=== PATIENT | female | born 1950 | race Caucasian/White ===

== ENCOUNTER → 2016-12-16 | Outpatient (CLI) | payer OTHER, MEDICARE ==
[~2016-12-16] MED LIST: ASPI1CPM PO; ATOR40TA64 PO; CYCL-375 PO; ESCI20TA22 PO; FLUD0.1T PO; GLIM2TAB3 PO; LAMO100T7 PO; LEVO125T70 PO; LORA-204 PO; MECL-103 PO; METO25TA6 PO; NITR0.4T39 SL; PIOG30TA2 PO; QUET150T3 PO; RABE20TA23 PO; [UNRECOGNIZED DRUG - CODE] PO
[2016-12-16 14:35] LABS: BASOPHILS % (AUTO) 0.3 % (0-2); EOSINOPHILS # (AUTO) 0.1 T/MM3 (0-0.5); EOSINOPHILS % (AUTO) 3.8 % (0-4); HCT - HEMATOCRIT 35.1 % (36-46); HGB - HEMOGLOBIN 11.3 GM/DL (12-16); LYMPHOCYTES # (AUTO) 1.2 T/MM3 (1-4.8); LYMPHOCYTES % (AUTO) 34.3 % (23-45); MEAN CORPUSCULAR HGB CONC(MCHC 32.2 GM/DL (31-37); MEAN CORPUSCULAR VOLUME 96.2 UM3 (80-100); MEAN PLATELET VOLUME 8.3 UM3 (9.4-12.4); MONOCYTES # (AUTO) 0.2 T/MM3 (0-0.8); NEUTROPHILS #(AUTO)-ABSOLUTE 1.9 T/MM3 (1.8-7.7); NEUTROPHILS % (AUTO) 54.6 % (33-66); RED BLOOD COUNT 3.65 M/MM3 (4.00-5.20); WBC - WHITE BLOOD COUNT 3.4 T/MM3 (4.5-11.0)
[2016-12-16 14:43] LABS: URIC ACID 3.4 MG/DL (2.5-7.5)
[2016-12-16 14:52] LABS: LITHIUM 0.2 MMOL/L (0.6-1.2)
[2016-12-16 16:11] LABS: THYROID STIM HORMONE-TSH 11.9 MIU/L (0.47-4.68)
[2016-12-18 00:37] LABS: LDL CHOLESTEROL,CALCULATED 56.8 (66-159); RISK FACTOR 1.8 RATIO (0-4.0); VLDL CHOLESTEROL 13.2 MG/DL (0-28)
== END ==
LOC: LAB 14:12
PROVIDERS: ATTEND Family Medicine
DX: Z51.81 Encounter for therapeutic drug level monitoring (principal); I10 Essential (primary) hypertension; E78.5 Hyperlipidemia, unspecified; E03.9 Hypothyroidism, unspecified
CPT/HCPCS: 80061; 80178; 84443; 84550; 85025

== ENCOUNTER → 2016-12-18 | Outpatient (CLI) | payer OTHER, MEDICARE | LOC: IMA 10:53 | PROVIDERS: ATTEND Family Medicine | DX: M81.0 Age-related osteoporosis without current pathological fracture (principal); Z82.69 Family history of other diseases of the musculoskeletal system and connective tissue; Z87.828 Personal history of other (healed) physical injury and trauma ==

== ENCOUNTER → 2017-01-09 | Outpatient (CLI) | payer OTHER, MEDICARE ==
[~2017-01-09] VITALS: Ht 167.6 cm; Wt 85.9 kg
[~2017-01-09] MED LIST changes: +ACET-62 PO; +DENOSUMAB 60 MG/ML INJECTION SQ ONE; +DICL50TA9 PO; +DICY20TA11 PO; +DOCU-175 PO; +FERR324T4 PO; +HYDR-4072 PO; +LEVO100T12 PO; +LEVO100T4 PO; +LEVO125T11 PO; +LITH150C PO; +SIMV20TA6 PO; +TRAM50TA4 PO
[2017-01-09 14:28] VITALS: Ht 167.6 cm; Wt 85.9 kg
[2017-01-09 14:29] VITALS: BP 126/69; PULSE 59; RESP 20; TEMP 97.2; O2SAT 97
[2017-01-09 14:37] VITALS: PULSE 59; RESP 20
== END ==
LOC: INF.THER 13:59
PROVIDERS: ATTEND Family Medicine
DX: M81.0 Age-related osteoporosis without current pathological fracture (principal)
CPT/HCPCS: 96372

== ENCOUNTER 2017-01-28 20:17 | Inpatient (IN) | payer OTHER, MEDICARE ==
[~2017-01-28] VITALS: Ht 167.6 cm; Wt 90.9 kg
[~2017-01-28 20:17] MED LIST changes: -ACET-62 PO; -DENOSUMAB 60 MG/ML INJECTION SQ ONE; -DICL50TA9 PO; -DICY20TA11 PO; -DOCU-175 PO; -FERR324T4 PO; -HYDR-4072 PO; -LEVO100T12 PO; -LEVO100T4 PO; -LEVO125T70 PO; -MECL-103 PO; -TRAM50TA4 PO
--- OUTSIDE RECORDS SUMMARY | 2017-01-28 20:21 | XMS REPORT | Continuity of Care Document ---
Author Author [facility] Organization [facility] Address Unknown Phone Unavailable Allergies Active Description Code Type Severity Reaction Onset Reported/Identified Relationship to Patient Clinical Status Yes ABILIFY ABILIFY Drug Allergy Unknown N/A 09/13/2006 Yes aripiprazole aripiprazole Drug Allergy Unknown N/A 09/13/2006 Yes GEODON GEODON Drug Allergy Unknown N/A 09/13/2006 Yes No Known Contrast Allergies No Known Contrast Allergies Drug Allergy Unknown N/A 09/13/2006 Yes No Known Food Allergies No Known Food Allergies Drug Allergy Unknown N/A 09/13/2006 Yes NO KNOWN LATEX ALLERGY/SENSITI NO KNOWN LATEX ALLERGY/SENSITI Drug Allergy Unknown N/A 2005 Yes ziprasidone ziprasidone Drug Allergy Unknown N/A 09/13/2006 Yes aripiprazole aripiprazole Drug Allergy Severe PARALYSIS RT. SIDE 02/21/2014 Yes trazodone trazodone Drug Allergy Severe NAUSEA AND VOMITING 02/21/2014 Yes hydrocodone hydrocodone Drug Allergy Moderate rash 02/21/2014 Yes ziprasidone ziprasidone Drug Allergy Mild STOMACH BURNING 02/21/2014 Medications Problems Procedures Code Description Performed By Performed On 89.59 OTH NONOPER CARD AND VASC MEASURE Duke Brown MD 02/21/2014 Results Encounters ACCT No. Visit Date/Time Discharge Status Pt. Type Provider Facility Loc./Unit Complaint [id number] 02/21/2014 06:45:00 2013 09:50:00 DIS Outpatient Duke Brown MD [facility]
--- NOTE | 2017-01-28 20:25 | NUR ---
DR DR ALBERTS AT BEDSIDE.
[2017-01-28] MEDS ORDERED: HYDROMORPHONE 2mg/ml INJECTION IV ONE (20:30)
--- OUTSIDE RECORDS SUMMARY | 2017-01-28 20:33 | XMS REPORT | Continuity of Care Document ---
Author Author [facility] Organization [facility] Address Unknown Phone Unavailable Allergies Active [...] Status Pt. Type Provider Facility Loc./Unit Complaint [id number] 02/21/2014 06:45:00 2013 09:50:00 DIS Outpatient Duke Brown MD [facility]
--- NOTE | 2017-01-28 20:41 | ERPDOC ---
Departure Disposition Decision Date: January 28, 2017 Disposition Decision Time: 22:33 Disposition: 02 TO [facility] Impression Impression Impression: Primary Impression: Closed fracture dislocation of left ankle Encounter type: initial encounter Qualified Codes: S82.892A - Other fracture of left lower leg, initial encounter for closed fracture Severity: Moderate Condition: Improved Seen By: Physician only Referrals: KORI PRADO II, MD (Family) Problems/Meds/Labs Reviewed?: Yes Medications reviewed and manag: Yes Additional Instructions: Use Tylenol liquid, 90 mg up to 4 times daily as needed for fever or fussiness Encourage frequent small amounts of formula and or Pedialyte as needed to maintain hydration, getting at least 3 urinations daily Follow up care ordered?: Yes Mental Status: Alert HPI General Chief Complaint: Lower Extremity Injury Stated Complaint: FALL Time Seen by Provider: 20:24 Source: patient Exam Limitations: no limitations HPI Foot/Ankle Initial Comments Patient was brought in by EMS for left ankle fracture. She was standing in her kitchen when she turned at the kitchen sink, stumbled and fell on a twisted ankle. Patient heard a pop, and had obvious deformity with sure/dislocation of left ankle. Given 100 g fentanyl in route to good relief. Occurred At: home Onset: Rapid Duration: 1/2 hour Severity: moderate Location: left: ankle Method of Injury: fell, twisted Associated Symptoms: pain with extension, pain with flexion, pain with standing , DENIES: bruising, pallor, red streaks, redness, swelling, weakness Allergies: Coded Allergies: aripiprazole (Verified Allergy, Unknown, RASH, 01/29/17) trazodone (Verified Allergy, Unknown, RASH, 01/29/17) cephalexin (Verified Adverse Reaction, Unknown, NAUSEA, 01/29/17) ziprasidone (Verified Adverse Reaction, Unknown, N/V, 01/29/17) Past History Patient Surgical History C SPINE fusion L TKA ORIF right ankle Back Fusion Hyst Carotid Endar Past Medical History Metabolic: diabetes, hypercholesterolemia, hypertension, hypothyroidism Cardiac: CAD, SD, angina Respiratory: pneumonia GI: GERD, IBS, ulcers Neurological: CVA, TIA, seizures Musculoskeletal: osteoarthritis Hematologic: anemia Psychological: OD, anxiety, depression, psychosis, schizophrenia, suicide attempt Surgical History General: appendix, back, colonoscopy, gallbladder, neck Cardiac: cardiac cath, carotid endarterectomy Reproductive/: hysterectomy Joint: foot, knee Vaccines Hx Influenza Vaccination: Yes (JUN 2016) Hx Pneumococcal Vaccination: Yes (JUN 2016) Hx Tetanus Diptheria: Yes Social History Does patient use chewing tobac: No Second Hand Exposure: No Substance Use Type: does not use Alcohol Intake: none Sexuality: male partner Review of Systems Constitutional Constitutional: DENIES: appetite decrease, appetite increase, chills, dizziness , fever, weakness ENMT Ears: DENIES: pain Hearing: DENIES: hearing loss, tinnitus Balance: DENIES: vertigo Mouth/Throat: DENIES: change in swallowing, change in voice, hoarsness, painful swallowing, sore throat Cardiovascular Cardiac: DENIES: chest pain, dyspnea on exertion Rhythm/Rate: DENIES: irregular beat, palpitations, tachycardia Vascular: DENIES: pedal edema Pulmonary Respiratory: DENIES: cough, dyspnea, pleuritic chest pain GI Upper Abdomen: DENIES: dysphagia, heartburn/indigestion, nausea, pain, vomiting Lower Abdomen: DENIES: blood in stool, constipation, diarrhea, pain General: DENIES: burning, dysuria, frequency, pain, urgency Musculoskeletal General: joint pain, joint swelling, pain, tenderness, DENIES: cramps, weakness Integumentary Skin: DENIES: rash, sores Neurological General: DENIES: headache, numbness, tingling, vertigo, weakness Exam General General Nourishment: well nourished, well developed, appears stated age General Body Habitus: well groomed Vital Signs: RN Vital Signs have been reviewed: Yes Height (Feet): 5 Height (Inches): 6.00 Fastrak Foot/Ankle Comments Patient has obvious fracture dislocation with deformity and lateral rotation, posterior deformity of the left ankle. Patient has good pulses, good capillary refill, and physical exam patient had reduction of fracture dislocation easily at the bedside. The ankle is clearly unstable, and required splinting at the bedside to maintain proper positioning Eyes (brief) Eyes Brief: found: EOMI, PERRL ENMT (brief) ENMT Brief: FOUND: mucosa moist, normal dentition, NOT FOUND: nasal erythema, nasal exudate, nasal swelling, pharnyx erythema, tonsillar deviation Neck (brief) Neck Brief: FOUND: trachea midline, NOT FOUND: JVD, adenopathy, spasm, tenderness Respiratory (brief) Respiratory Brief: FOUND: clear all deng, equal bilaterally, symmetrical, NOT FOUND: rales, tenderness, wheezes Cardiovascular (brief) Cardiac Brief: FOUND: regular rate, regular rhythm, NOT FOUND: pedal edema Capillary Refill: <2 sec Abdomen (brief) Abdominal Brief: FOUND: bowel normo active x4, soft, NOT FOUND: tender Lymphatic (brief) Lymphatic Brief: NOT FOUND: adenopathy, lymphedema Musculoskeletal (brief) Musculoskeletal Brief: FOUND: deformity, loss of motion, NOT FOUND: spasm, tenderness Integumentary (brief) Integumentary Brief: FOUND: dry, pink, warm Neurologic (brief) Neurological Brief: FOUND: CN w/o gross def to obs, motor-no gross deficits, sensory-no gross deficits, NOT FOUND: ataxia Neurologic RN Documented GCS Eye Opening: Verbal: Motor: Total: Psychiatric (brief) Psychiatric Brief: FOUND: alert, attentive, normal affect, oriented Progress Results/Orders Orders Procedure Category Date Status Time Bmp - Basic Metabolic LAB 01/31/17 Complete Panel 09:38 Hydrocodone/Acetaminophen PHA 01/31/17 In Process (Pimento 7.5/325 12:30 Enoxaparin (Lovenox) PHA 02/01/17 In Process 21:00 Lab Results Laboratory Tests Test 01/31/17 05:52 01/31/17 09:56 01/31/17 10:29 01/31/17 15:33 Glucometer 111mg/dL 157mg/dL 55mg/dL Turbidity < 20 Sodium Level 143MEQ/L Potassium Level 4.0MEQ/L Chloride Level 105MEQ/L Carbon Dioxide Level 29MEQ/L Anion Gap 9MEQ/L Blood Urea Nitrogen 11.0MG/DL Creatinine 0.7MG/DL Glomerular Filtration Rate Calc 83 BUN/Creatinine Ratio 16RATIO Glucose Level 171MG/DL Calculated Osmolality 278MOSM/KG Calcium Level 9.5MG/DL Icterus Index < 2 Chemistry Specimen Hemolysis < 15 Test 01/31/17 15:54 01/31/17 20:47 Glucometer 122mg/dL 102mg/dL Medications Current ED Medications Hydromorphone HCl (Dilaudid) 0.5 mg O ONCE IV Last administered on 01/28/17t 20:37; Start 01/28/17 at 20:30; Stop 01/28/17 at 20:31; Status DC Ondansetron HCl (Zofran) 4 mg O ONCE IV Last administered on 01/28/17 20:50; Start 01/28/17 at 20:45; Stop 01/28/17 at 20:46; Status DC Diazepam 5 mg 5 mg O ONCE IV Last administered on 01/28/17 21:43; Start 01/28 at 21:30; Stop 01/28/17 at 21:31; Status DC Sodium Chloride (Normal Saline IV) 1,000 ml @ 0 mls/hr Q0M ONCE IV ; Start 07/07 at 21:30; Stop 01/28/17 at 21:31; Status DC Fentanyl 100 mcg 100 mcg O ONCE IV Last administered on 01/28/17 22:12; Start 01/28/17 at 22:15; Stop 01/28/17 at 22:16; Status DC Lactated Ringer's (Lactated Ringers) 1,000 ml @ 50 mls/hr Q20H IV Last administered on 01/31/17 15:30; Start 01/28/17 at 22:27 Progress Progress Patient had fracture/dislocation stabilized the posterior short leg splint prior to x-rays Given Dilaudid 0.5 mg IV, and Zofran 4 mg IV for pain and nausea caused during manipulation of the ankle. X-rays reveal severe fracture/dislocation of left ankle involving the lateral malleolus, distal fibula. Even after initial repositioning, patient is still in poor alignment. 2114 - Case is discussed with Dr. Ac, he will attend to the patient in the ER are physician providing any needed sedation, to reduce fracture and dislocation , splinted appropriately, will plan to admit from there. Patient given additional 100 g fentanyl for pain control during second reduction and splinting by Dr. Ac Admitted RUSSELL ALBERTS MD January 28, 2017 20:41 Glomerular Filtration Rate Calc 62 BUN/Creatinine Ratio 24RATIO Glucose Level 117MG/DL Calculated Osmolality 279MOSM/KG Calcium Level 9.1MG/DL Icterus Index < 2 Chemistry Specimen Hemolysis < 15 Medications Current ED Medications Hydromorphone HCl (Dilaudid) 0.5 mg O ONCE IV Last administered on 01/28/17 20:37; Start 01/28/17 at 20:30; Stop 01/28/17 at 20:31; Status DC Ondansetron HCl (Zofran) 4 mg O ONCE IV Last administered on 01/28/17 20:50; Start 01/28/17 at 20:45; Stop 01/28/17 at 20:46; Status DC Diazepam 5 mg 5 mg O ONCE IV Last administered on 01/28/17 21:43; Start 01/28 at 21:30; Stop 01/28/17 at 21:31; Status DC Sodium Chloride (Normal Saline IV) 1,000 ml @ 0 mls/hr Q0M ONCE IV ; Start 07/07 at 21:30; Stop 01/28/17 at 21:31; Status DC Fentanyl (Fentanyl) 100 mcg O ONCE IV Last administered on 01/28/17 22:12; Start 01/28/17 at 22:15; Stop 01/28/17 at 22:16; Status DC Progress Progress Patient had fracture/dislocation stabilized the posterior short leg splint prior to x-rays Given Dilaudid 0.5 mg IV, and Zofran 4 mg IV for pain and nausea caused during manipulation of the ankle. X-rays reveal severe fracture/dislocation of left ankle involving the lateral malleolus, distal fibula. Even after initial repositioning, patient is still in poor alignment. 2114 - Case is discussed with Dr. Ac, he will attend to the patient in the ER are physician providing any needed sedation, to reduce fracture and dislocation , splinted appropriately, will plan to admit from there. Patient given additional 100 g fentanyl for pain control during second reduction and splinting by Dr. Ac Admitted RUSSELL ALBERTS MD January 28, 2017 20:41
[2017-01-28] MEDS ORDERED: ONDANSETRON 4mg/2ml INJECTION IV ONE (20:45)
[2017-01-28] MEDS ORDERED: HYDR-4072 PO (20:48)
[2017-01-28] MEDS ORDERED: DICL50TA9 PO (20:51)
[2017-01-28] MEDS ORDERED: TRAM50TA4 PO (20:51)
[2017-01-28 20:53] LABS: BASOPHILS % (AUTO) 0.3 % (0-2); EOSINOPHILS # (AUTO) 0.2 T/MM3 (0-0.5); EOSINOPHILS % (AUTO) 1.9 % (0-4); HCT - HEMATOCRIT 32.6 % (36-46); HGB - HEMOGLOBIN 10.5 GM/DL (12-16); IMMATURE GRANULOCYTE # (AUTO) 0.03 T/MM3 (0.00-0.03); IMMATURE GRANULOCYTE % (AUTO) 0.3 % (0.0-0.5); LYMPHOCYTES # (AUTO) 2.3 T/MM3 (1-4.8); LYMPHOCYTES % (AUTO) 22.9 % (23-45); MEAN CORPUSCULAR HGB 30.1 UUG (26-34); MEAN CORPUSCULAR HGB CONC(MCHC 32.2 GM/DL (31-37); MEAN CORPUSCULAR VOLUME 93.4 UM3 (80-100); MEAN PLATELET VOLUME 8.7 UM3 (9.4-12.4); MONOCYTES # (AUTO) 0.7 T/MM3 (0-0.8); MONOCYTES % (AUTO) 6.8 % (0-9.0); NEUTROPHILS #(AUTO)-ABSOLUTE 6.7 T/MM3 (1.8-7.7); NEUTROPHILS % (AUTO) 67.8 % (33-66); RED BLOOD COUNT 3.49 M/MM3 (4.00-5.20)
[2017-01-28] MEDS ORDERED: DOCU-175 PO (20:56)
--- NOTE | 2017-01-28 20:56 | NUR ---
XRY PORTABLE XRY AT BEDSIDE.
[2017-01-28] MEDS ORDERED: FERR324T4 PO (20:57)
[2017-01-28] MEDS ORDERED: ACET-62 PO (20:58)
[2017-01-28] MEDS ORDERED: DICY20TA11 PO (20:59)
[2017-01-28] MEDS ORDERED: LEVO100T12 PO (21:03)
[2017-01-28 21:05] LABS: ANION GAP 12 MEQ/L (5-15); BUN/CREATININE RATIO 24 RATIO (6-26); CALCIUM 9.1 MG/DL (8.4-10.2); CHLORIDE 111 MEQ/L (98-107); CO2 - CARBON DIOXIDE 20 MEQ/L (22-30); CREATININE 0.9 MG/DL (0.7-1.2); GLOMERULAR FILTRATION RATE 62; GLUCOSE 117 MG/DL (65-110); POTASSIUM 4.7 MEQ/L (3.6-5); SODIUM 143 MEQ/L (134-144)
[2017-01-28] MEDS ORDERED: NORMAL SALINE 1,000 ML IV ONE (21:30)
--- NOTE | 2017-01-28 21:42 | NUR ---
MED PT GIVEN INSTRUCTION REGARDING VALIUM. UNDERSTANDING VERBALIZED.
--- NOTE | 2017-01-28 22:04 | NUR ---
DR DR BARRIOS AT BEDSIDE.
[2017-01-28] MEDS ORDERED: FENTANYL 100mcg/2ml INJECTION IV ONE (22:15)
--- NOTE | 2017-01-28 22:26 | NUR ---
XRY PORTABLE XRY AT BEDSIDE.
[2017-01-28] MEDS ORDERED: METOCLOPRAMIDE 10mg/2ml INJECTION IV PRN (22:30)
[2017-01-28] MEDS ORDERED: ONDANSETRON 4mg/2ml INJECTION IV PRN (22:30)
--- NOTE | 2017-01-28 22:41 | NUR ---
REPORT GIVEN TO [facility].
--- NOTE | 2017-01-28 22:45 | NUR ---
VOID PT VOIDED LG AMOUNT OF URINE. BEDPAD DID NOT CONTAIN VOLUME. PT ASSISTED WITH CLEANSE AND ASSISTED WITH PIVOT TRANSFER TO .
--- NOTE | 2017-01-28 22:47 | HPPDOC ---
Ortho HPI HPI Elements Location: FOUND ankle (left) Injury: Yes Pain: FOUND stabbing Onset: Sudden Severity: FOUND severe Duration: FOUND 1-6 hours Previous Surgery: No Previous Injury: No Aggrevated by: FOUND all activity Associated Symptoms: FOUND numbness X-ray Findings: FOUND other (bimalleolar fracture dislocation) Recommendation: FOUND other (closed reduction with overnight observation and possible ORIF tomorrow) HPI Fell at home in kitchen when twisting Past Medical History Adult Problem List Updates NIDDM Surgical History Patient's Surgical History: C SPINE fusion L TKA ORIF right ankle Back Fusion Hyst Carotid Endar Current Medications Acetaminophen (Acetaminophen) 500 Mg Tablet, 500 MG PO QID PRN for PAIN, ( Reported) Last Taken: Unknown Dose on Unknown Date & Time Aspirin/Dipyridamole ( Aggrenox 25 mg-200 mg Capsule) 1 Cap Capsule, 1 CAP PO BID, (Reported) Last Taken: Unknown Dose on 01/28/17 1800 Atorvastatin Calcium (Atorvastatin Calcium) 40 Mg Tablet, 40 MG PO HS, (Reported) Last Taken: Unknown Dose on 01/27/171999 Cyclobenzaprine HCl ( Cyclobenzaprine HCl) 10 Mg Tablet, 10 MG PO HS, (Reported) Last Taken: Unknown Dose on 01/27/171999 Dicyclomine HCl (Dicyclomine HCl) 20 Mg Tablet, 20 MG PO QID, (Reported) Last Taken: Unknown Dose on 01/28/17 1800 Docusate Sodium (Docusate Sodium) 100 Mg Capsule, 100 MG PO DAILY PRN for CONSTIPATION, (Reported) Last Taken: Unknown Dose on Unknown Date & Time Escitalopram Oxalate ( Lexapro) 20 Mg Tablet, 20 MG PO DAILY, (Reported) Last Taken: Unknown Dose on 01/28/17 0800 Ferrous Sulfate (Ferrous Sulfate) 324 Mg Tablet.dr, 324 MG PO DAILY, (Reported) Last Taken: Unknown Dose on Unknown Date & Time Fludrocortisone Acetate ( Fludrocortisone Acetate) 0.1 Mg Tablet, 0.1 MG PO DAILY, (Reported) Last Taken: Unknown Dose on 01/28/17 0800 Hydrocodone/Acetaminophen ( Hydrocodon-Acetaminoph 7.5-325) 7.5-325 Tablet, 1-2 TAB PO Q4-6H PRN for PAIN, ( Reported) Last Taken: Unknown Dose on Unknown Date & Time Lamotrigine (Lamictal) 100 Mg Tablet, 100 MG PO BID, (Reported) Last Taken: Unknown Dose on 01/28/17 1800 Levothyroxine Sodium ( Levothyroxine Sodium) 100 Mcg Tablet, 100 MCG PO DAILY, (Reported) Last Taken: Unknown Dose on 01/28/17 0800 Prince Carbonate (Prince Carbonate) 150 Mg Capsule, 150 MG PO WS, (Reported) Last Taken: Unknown Dose on 01/28/17 1800 Lorazepam (Ativan) 1 Mg Tablet, 1 MG PO TID PRN for ANXIETY, (Reported) Last Taken: Unknown Dose on Unknown Date & Time Metformin Hcl (Glucophage) 850 Mg Tablet, 850 MG PO BID, (Reported) Last Taken: Unknown Dose on 01/28/17 1800 Metoprolol Tartrate (Metoprolol Tartrate) 25 Mg Tablet, 0.5 TAB PO BIDWM, (Reported) Last Taken: Unknown Dose on 01/28/17 1800 Quetiapine Fumarate (Seroquel Xr) 150 Mg Tablet, 150 MG PO HS, (Reported) Last Taken: Unknown Dose on 01/27/17 2000 Rabeprazole Sodium (Aciphex) 20 Mg Tablet.dr, 20 MG PO DAILY, (Reported) Last Taken: Unknown Dose on 01/28/17 0800 Allergies Allergies: Coded Allergies: aripiprazole (Verified Allergy, Unknown, RASH, 01/28/17) trazodone (Verified Allergy, Unknown, RASH, 01/28/17) cephalexin (Verified Adverse Reaction, Unknown, NAUSEA, 01/28/17) ziprasidone (Verified Adverse Reaction, Unknown, N/V, 01/28/17) Family History Family History: Dementia Parkinson's dz Alzheimer's dz Vaccines 2016 Jun NO OPEN AREA Social History Does patient use chewing tobac: No Second Hand Exposure: No Substance Use Type: does not use Alcohol Intake: none Sexuality: male partner Review of Systems Constitutional: DENIES: chills, fever Cardiovascular DENIES: chest pain Pulmonary Respiratory: DENIES: dyspnea GI Upper Abdomen: DENIES: nausea, vomiting Lower Abdomen: DENIES: constipation, diarrhea General: DENIES: dysuria Physical Exam General General: well nourished, well developed Cardiovascular Cardiac Comments good DP pulse and CR Integumentary FOUND dry, FOUND pink, FOUND warm Neurologic Comments decreased sensation to all toes and dorsum of foot Psychiatric FOUND alert Laboratory Laboratory Tests Test 01/28/17 20:47 White Blood Count 10.0T/MM3 Red Blood Count 3.49M/MM3 Hemoglobin 10.5GM/DL Hematocrit 32.6% Mean Corpuscular Volume 93.4UM3 Mean Corpuscular Hemoglobin 30.1UUG Mean Corpuscular Hemoglobin Concent 32.2GM/DL RDW Standard Deviation 45.8FL Platelet Count 259T/MM3 Mean Platelet Volume 8.7UM3 Immature Granulocyte % (Auto) 0.3% Neutrophils (%) (Auto) 67.8% Lymphocytes (%) (Auto) 22.9% Monocytes (%) (Auto) 6.8% Eosinophils (%) (Auto) 1.9% Basophils (%) (Auto) 0.3% Absolute Immature Granulocyte (auto 0.03T/MM3 Absolute Neutrophils (auto) 6.7T/MM3 Absolute Lymphocytes (auto) 2.3T/MM3 Absolute Monocytes (auto) 0.7T/MM3 Absolute Eosinophils (auto) 0.2T/MM3 Absolute Basophils (auto) 0.0T/MM3 Turbidity < 20 Sodium Level 143MEQ/L Potassium Level 4.7MEQ/L Chloride Level 111MEQ/L Carbon Dioxide Level 20MEQ/L Anion Gap 12MEQ/L Blood Urea Nitrogen 22.0MG/DL Creatinine 0.9MG/DL Glomerular Filtration Rate Calc 62 BUN/Creatinine Ratio 24RATIO Glucose Level 117MG/DL Calculated Osmolality 279MOSM/KG Calcium Level 9.1MG/DL Icterus Index < 2 Chemistry Specimen Hemolysis < 15 Assessment & Plan Problems: (1) Closed fracture dislocation of left ankle Status: Acute Qualifiers: Encounter type: initial encounter Qualified Codes: S82.892A - Other fracture of left lower leg, initial encounter for closed fracture Assessment & Plan: Closed reduction in ER. Admit for observation and elevation and pain control and possible surgery tomorrow. ILAN BARRIOS MD January 28, 2017 22:47
--- OUTSIDE RECORDS SUMMARY | 2017-01-28 22:59 | XMS REPORT | Continuity of Care Document ---
Author Author [facility] Organization [facility] Address Unknown Phone Unavailable Allergies Active Description [...] Status Pt. Type Provider Facility Loc./Unit Complaint [id number] 02/21/2014 06:45:00 2013 09:50:00 DIS Outpatient Duke Brown MD [facility]
[2017-01-28 23:00] VITALS: BP 154/71; PULSE 65; RESP 16; TEMP 96.6; O2SAT 95
--- NOTE | 2017-01-28 23:00 | NUR ---
ADMIT PT TRANSFERRED TO SURGICAL UNIT VIA WC BY ARNOLDO GILLETTE.
--- NOTE | 2017-01-28 23:00 | NUR ---
ADMIT 66 YEAR OLD FEMALE PATIENT ADMITTED TO ROOM 133 VIA WC FROM ED. ADMITTED TO SERVICES OF DR. BARRIOS. AWAKE AND ALERT. ORIENTED TO PERSON, PLACE, AND TIME. DENIES PAIN EXCEPT WITH MOVEMENT. SPLINT IN PLACE TO LEFT ANKLE-FOOT ELEVATED ON PILLOWS. ORIENTED TO ROOM, CALL LIGHT, PLAN OF CARE, ETC. DENIES NEEDS. WILL MONITOR.
[2017-01-28 23:04] VITALS: Ht 167.6 cm; Wt 90.9 kg
[2017-01-28] MEDS: LR 1,000 ML IV SCH (23:33)
[2017-01-29] MEDS: HYDROMORPHONE 2mg/ml INJECTION IV PRN ×4 (01:27→19:34)
[2017-01-29 05:06] LABS: BASOPHILS % (AUTO) 0.2 % (0-2); EOSINOPHILS # (AUTO) 0.1 T/MM3 (0-0.5); HCT - HEMATOCRIT 32.9 % (36-46); HGB - HEMOGLOBIN 10.6 GM/DL (12-16); IMMATURE GRANULOCYTE # (AUTO) 0.02 T/MM3 (0.00-0.03); IMMATURE GRANULOCYTE % (AUTO) 0.2 % (0.0-0.5); LYMPHOCYTES # (AUTO) 1.9 T/MM3 (1-4.8); LYMPHOCYTES % (AUTO) 21.5 % (23-45); MEAN CORPUSCULAR HGB 29.9 UUG (26-34); MEAN CORPUSCULAR HGB CONC(MCHC 32.2 GM/DL (31-37); MEAN CORPUSCULAR VOLUME 92.7 UM3 (80-100); MEAN PLATELET VOLUME 8.9 UM3 (9.4-12.4); MONOCYTES # (AUTO) 0.7 T/MM3 (0-0.8); MONOCYTES % (AUTO) 8.2 % (0-9.0); NEUTROPHILS % (AUTO) 68.9 % (33-66); RED BLOOD COUNT 3.55 M/MM3 (4.00-5.20); WBC - WHITE BLOOD COUNT 8.7 T/MM3 (4.5-11.0)
[2017-01-29 05:24] LABS: ANION GAP 9 MEQ/L (5-15); BUN/CREATININE RATIO 21 RATIO (6-26); CALCIUM 9.3 MG/DL (8.4-10.2); CHLORIDE 111 MEQ/L (98-107); CO2 - CARBON DIOXIDE 24 MEQ/L (22-30); CREATININE 0.8 MG/DL (0.7-1.2); GLOMERULAR FILTRATION RATE 71; GLUCOSE 91 MG/DL (65-110); POTASSIUM 5.3 MEQ/L (3.6-5); SODIUM 144 MEQ/L (134-144)
--- NOTE | 2017-01-29 06:08 | NUR ---
SUMMARY RESTED THROUGH PART OF THE NIGHT WITH EYES CLOSED. MEDICATED WITH DILAUDID FOR LEFT ANKLE PAIN. REPORTS INCREASED THROBBING AND FEELING OF TIGHTNESS TO LEFT ANKLE THIS AM. CONTINUES TO HAVE GOOD COLOR, MOTION, AND SENSATION TO LEFT TOES. LEFT PEDAL PULSE REMAINS PALPABLE. LEFT ANKLE REMAINS ELEVATED ON PILLOWS. WILL CONTINUE TO MONITOR.
[2017-01-29] MEDS ORDERED: DOCUSATE SODIUM 100 MG CAPSULE PO PRN (07:15)
[2017-01-29] MEDS ORDERED: LORAZEPAM 1 MG TABLET PO PRN (07:15)
[2017-01-29] MEDS ORDERED: ACETAMINOPHEN 500 MG TABLET PO PRN (07:15)
[2017-01-29 07:27] VITALS: BP 131/76; PULSE 66; RESP 12; TEMP 96.1; O2SAT 95
--- NOTE | 2017-01-29 07:39 | NUR ---
DR VISIT Dr Ac and Preston visit, assess left lower extremity, and discuss plan with patient. Plan is to wait on surgery. Platelet function test cancelled per order. Discussed that patient is diabetic. Blood sugar order received. Case management to follow regarding discharge planning for as early as today. Patient states that she lives at home and that help is not available during the day as her works. She will be unable to bear weight on the affected leg per Dr Ac's instructions to her.
[2017-01-29 07:55] VITALS: TEMP 97.6
[2017-01-29 08:08] VITALS: PULSE 75; RESP 12
--- NOTE | 2017-01-29 08:16 | PDORTHOPN ---
Subjective Date DATE: 01/29/17 TIME: 08:07 Jacqueline Topete is seen this AM for f/u on left ankle fx-dislocation. Pain is well controlled. No numbness or tingling in foot or toes. No other concerns. Objective Vital Signs Vital signs Vital Signs 01/28/17 01/28/17 01/28/17 01/28/17 20:17 20:37 21:47 22:51 Temp 97.7 Pulse 65 66 81 Resp 18 16 16 18 B/P 133/77 151/70 151/61 Pulse Ox 96 95 95 O2 Delivery Room Air Room Air Room Air 01/28/17 01/28/17 01/28/17 01/29/17 23:00 23:00 23:00 01:27 Temp 96.6 Pulse 65 81 Resp 16 16 18 16 B/P 154/71 151/61 Pulse Ox 95 95 O2 Delivery Room Air Room Air 01/29/17 01/29/17 01/29/17 01/29/17 05:20 07:27 07:41 07:55 Temp 96.1 97.6 Pulse 66 Resp 16 12 12 B/P 131/76 Pulse Ox 95 O2 Delivery Room Air Height (Feet): 5 Height (Inches): 6.00 Weight (Kilograms): 98.200 General General Appearance: No Acute Distress Respiratory (Brief) Respiratory Brief: FOUND: non-labored Musculoskeletal (Brief) Comments Swelling of the left foot / ankle noted with bruising around the ankle. Integumentary (Brief) Integumentary Brief: FOUND dry, FOUND pink, FOUND warm Neurologic (Brief) Neurological Brief: FOUND: neuro intact Psychiatric (Brief) Psychiatric Brief: FOUND: alert, no acute distress Laboratory Laboratory Laboratory Tests 01/28/17 20:47 01/29/17 04:56 Laboratory Tests 01/28/17 20:47 01/29/17 04:56 Assessment & Plan Problems: (1) Closed fracture dislocation of left ankle Status: Acute Qualifiers: Encounter type: initial encounter Qualified Codes: S82.892A - Other fracture of left lower leg, initial encounter for closed fracture Assessment & Plan: 01/28/17 Closed reduction left ankle fx-dislocation in ER by Dr Ac 01/28. Admitted for observation, elevation, pain control and possible surgery 01/29 if swelling allows. 01/29/17 Swelling is too much for surgery today. Will discuss holding Aggrenox with Dr Brown. Schedule for surgery 02/03 and check her in the office 02/02 to confirm swelling is down. Arrange placement in facility due to her need for non-wt bearing and strict elevation. Pt will not be able to manage at home. Case Management consulted to assist. Hospital Course Summary Disclaimer The visit summary below is not to be considered part of the above Progress Note. REYNA CHUNG January 29, 2017 08:10
[2017-01-29] MEDS: --POM--METOPROLOL TARTRATE 25mg TABLET PO SCH ×2 (08:20→17:36)
[2017-01-29] MEDS: METFORMIN 850 MG PO SCH ×2 (08:20→17:36)
[2017-01-29] MEDS: RABEPRAZOLE 20 MG PO SCH (08:21)
[2017-01-29] MEDS: DICYCLOMINE 20 MG PO SCH ×4 (08:22→22:23)
[2017-01-29] MEDS: FLUDROCORTISONE 0.1 MG PO SCH (08:22)
[2017-01-29] MEDS: LEVOTHYROXINE 100 MCG PO SCH (08:23)
[2017-01-29] MEDS: ESCITALOPRAM 20 MG PO SCH (08:23)
[2017-01-29] MEDS: LAMOTRIGINE 100 MG PO SCH ×2 (08:24→22:23)
[2017-01-29] MEDS: FERROUS SULFATE 324 MG TABLET PO SCH (08:35)
--- NOTE | 2017-01-29 08:48 | DI ---
EXAM: ANKLE LEFT 3 VIEW 2107 hours COMPARISON: 01/11/2016. 03/31/2012. HISTORY: ITS.REASON: left ankle fracture dislocation . FINDINGS: There is a trimalleolar fracture dislocation of the ankle. There is an obliquely oriented fracture through the distal metadiaphysis of the fibula with the distal fracture fragment laterally displaced a shaft width. There is a transverse fracture through the base of the medial malleolus which may be posteriorly displaced a shaft width. There is an obliquely oriented fracture through the posterior malleolus which is relatively nondisplaced. There is posterior dislocation of the talus relative to the distal tibia, a shaft width. There is widening of the lateral ankle mortise with widening of the interosseous space of the distal tibia and fibula. The fracture through the medial malleolus may extend to the distal metaphysis of the medial tibia. IMPRESSION: Trimalleolar fracture dislocation of the ankle as described above. LOCATION OF DICTATION: [facility] [place] .
--- NOTE | 2017-01-29 08:51 | DI ---
EXAM: ANKLE LEFT 2 VIEW 2234 hours COMPARISON: 01/28/2017 at 2107 hours. 01/11/2016. 03/31/2012. HISTORY: ITS.REASON: post reduction, ankle fracture . FINDINGS: There is interval reduction of the trimalleolar fracture dislocation of the left ankle. The previously seen obliquely oriented fracture through the distal metadiaphysis of the fibula appears to now be well aligned and only minimally posteriorly displaced a cortex width. The fracture through the base of the medial malleolus is now relatively nondisplaced. The fracture through the posterior malleolus is only minimally displaced a cortex width posteriorly. There is interval reduction of the previously seen posterior ankle dislocation and the talus now appears to be well-seated to the tibial plafond. IMPRESSION: Interval reduction of the trimalleolar fracture dislocation of the ankle which now appears to be in good position and alignment. LOCATION OF DICTATION: [facility] [place] .
--- NOTE | 2017-01-29 09:21 | NUR ---
MAX CM IN TO VISIT PATIENT, SHE IS A&O. PATIENT IS TO DISCHARGE HOME WITH SURGERY PENDING FOR ANKLE FRACTURE. PATIENT LIVES AT HOME WITH WHO WORKS FT DAY SHIFT WITH NO OTHER FAMILY HELP. INITIALLY SHE STATES THAT HAS TO WORK BUT THERE ISN'T A PLAN FOR WHEN HE IS GONE. AFTER REVIEWING OPTIONS OF PRIVATE PAY FACILITY, HH BUT NEED HELP AT ALL TIMES SHE STATES THAT WILL JUST HAVE TO TAKE VACATION TIME. STATES THAT HE IS PHYSICALLY ABLE TO HELP HER GET TO THE BATHROOM, ETC. SHE HAS A WC AND WC RAMP, WELL A WALKER AND WHEELED WALKER WHICH SHE WILL NOT USE THE WHEELED WALKER AT THIS TIME. CM CONTACT INFORMATION GIVEN, SHE WILL CALL ME AFTER VISITING WITH HER . Addendum: 01/29/17 at 0925 by NORBERTO ADAM RN Amended: Links added.
--- NOTE | 2017-01-29 09:54 | NUR ---
MAX SANTANA HAD VOICE MESSAGE FROM RANULFO ROE THAT PATIENT WILL NEED PLACEMENT UNTIL SURGERY DUE TO BEING NON WEIGHT BEARING. I REVISITED PATIENT, SHE STILL WOULD LIKE TO GO HOME WITH 'S HELP. I DID CALL AND SPEAK TO TO SEE IF HE IS IN AGREEMENT THAT HE WILL BE ABLE TO MANAGE AND HE IS. WE DID TALK ABOUT COST OF PRIVATE PAY FACILITY PLACEMENT AND HE FEELS THAT THEY CAN NOT AFFORD THIS. WHEN HIS VACATION LEAVE IS APPROVED I WILL BE NOTIFIED. IN ADDITION TO WC/WC RAMP/WALKER, PATIENT DOES ALSO HAVE A COMMODE AND RECLINER WHERE SHE COULD SLEEP. IF PLACEMENT IS NEEDED PATIENT GAVE ME PERMISSION TO CALL ALL TRIPP FACILITIES.
--- NOTE | 2017-01-29 10:23 | NUR ---
PAIN PRN NORCO GIVEN FOR PAIN IN THE LEFT ANKLE.
--- NOTE | 2017-01-29 10:25 | NUR ---
CM PATIENT CALLED AND HER 'S LEAVE WAS APPROVED AND THE PLAN IS TO DISCHARGE HOME WITH HIS 24 HOUR CARE.
--- NOTE | 2017-01-29 10:59 | NUR ---
MAX CM IN TO VISIT PATIENT, EXPLAINED PT/OT WILL EVAL AND EDUCATE ON TRANSFERS. PATIENT IS AGREEABLE TO [facility], WILL REFER TO JAMARI OLIVAS. I CALLED SPEEDY AT [facility] AND LEFT VOICE MESSAGE OF REFERRAL.
--- NOTE | 2017-01-29 12:59 | PROCEDUREF ---
DATE OF PROCEDURE 01/28/2017 PREPROCEDURE DIAGNOSIS Left ankle fracture-dislocation. POSTOPERATIVE DIAGNOSIS Left ankle fracture-dislocation. PROCEDURE PERFORM ED Closed reduction of left ankle. SURGEON Cash Ac MD DESCRIPTION OF PROCEDURE Ms. Moser and her left ankle were identified in the emergency room. She was given fentanyl by the ER physician. I then sat her up at the side of the bed letting her left foot dangle over the side of the bed with her knee at 90 degrees. She was able to relax pretty well for me. Reduction maneuver was then performed to the left ankle and held in position as the posterior slab and sugar-tong splint were applied and then the ankle held in reduced position while the splint hardened. Postreduction x-rays showed excellent alignment of the ankle with a bimalleolar ankle fracture. She was able to move her toes much better after the reduction and she states that she feels her toes "start to wake up." She tolerated this well. There were no complications. DARON
--- NOTE | 2017-01-29 13:56 | NUR ---
CM VISITED PATIENT AFTER PT EVAL AND SHE IS IN ALOT OF PAIN AND NOW DOESN'T THINK SHE CAN MANAGE AT HOME. SHE AGREED TO CONTACT FACILITIES FOR A PRIVATE PAY STAY. I CALLED AND SPOKE WITH RADHA AT [facility] AND THEY HAVE BED AVAILABILITY. PORTAL OPENED FOR [facility]. I ALSO CONTACTED SIMONE AT AND OPENED PORTAL.
--- NOTE | 2017-01-29 14:15 | NUR ---
DISCOMFORT Patient had significantly increased pain after PT/OT this afternoon after her leg was dependent. She had been in tears after therapy, rating pain to her ankle 10/10, with a slight improvement after repositioning it, but incomplete relief. Dilaudid 0.5 mg IV was given by slow IV push and patient reports that this has helped significantly. After experiencing how difficult it is to maneuver, she is no longer sure that she wants to go home with her , but feels like she will need additional nursing care services. CM is aware and are looking at options.
--- NOTE | 2017-01-29 14:16 | NUR ---
[facility] RETURNED CALL, THEY ARE OUT OF NETWORK FOR [employer] BUT CAN SEE HER. INSURANCE WILL PAY 70% UNTIL $1500 OUT OF POCKET HAS BEEN MET, THEN WILL COVER AT 100%. SHE HAS MET HER DEDUCTIBLE. I DID UPDATE THAT PATIENT MAY GO TO SNF. IN-NETWORK COVERED HHS ARE: [facility].
--- NOTE | 2017-01-29 14:27 | NUR ---
DR VELARDE PCP NOTIFIED Notified Dr Velarde, the patient's PCP, of patient's current status through his nurse. This was done at [place]'s request.
--- NOTE | 2017-01-29 14:59 | NUR ---
[facility] WILL ACCEPT PATIENT PRIVATE PAY, IS PRESENT IN THE ROOM AND IS GOING TO BANK TO GET MONEY REQUESTED UP FRONT BY [facility] AND TAKING HOME MEDICATIONS TO [facility] TO BE BUBBLE WRAPPED FOR [facility]. PATIENT WILL NEED TRANSPORTATION FROM HOSPITAL TO FACILITY.
--- NOTE | 2017-01-29 16:23 | PDOCECFAO ---
Admission Orders Admission Orders Admit to: [facility] Allergies: Coded Allergies: aripiprazole (Verified Allergy, Unknown, RASH, 01/29/17) trazodone (Verified Allergy, Unknown, RASH, 01/29/17) cephalexin (Verified Adverse Reaction, Unknown, NAUSEA, 01/29/17) ziprasidone (Verified Adverse Reaction, Unknown, N/V, 01/29/17) Admitting Diagnosis Left Ankle Fracture Dislocation Admitting Physician Cash Ac MD Code Status Full Code Anticipated LOS: 30 days or less Rehab Potential: Poor Rehab Prognosis: Poor Wound/Incision Care: PATIENT IS TO BE NON WEIGHT BEARING PENDING SURGERY NEXT WEEK OF LEFT ANKLE FRACTURE. strict elevation of the left leg higher than her heart except for eating and bathroom needs. May use Facility Protocol /SO: Yes May Have Flu Vaccine: Yes Long Term Certification I certify that SNF services are required to be given on an Inpatient basis because of the patients need for senior living care on a continuing basis for the condition(s) for which he/she received inpatient hospital services prior to his/her transfer to the SNF. SNF inpatient care is necessary for the following reasons Not Applicable Cardiac or Respiratory Arrest In Event of Arrest: Start CPR,call 911,to ER Resident is Aware of Diagnosis: Yes Additional Orders: Follow up on ThursdayFebruary [address]. 11:00 am Pt must be non-wt bearing on the left leg. Strict elevation and ICE to the ankle. REYNA CHUNG January 29, 2017 16:23
--- NOTE | 2017-01-29 17:01 | PDORTHOPN ---
Subjective Date DATE: 01/29/17 TIME: 16:37 Subjective Yoselyn worked with PT / OT today to see if she would be able to go home or would need placement. She did not do well with mobility and it was clear she would need placement to be safe. Unfortunately, she also became very painful and required IV Dilaudid after working with her mobility needs. Yoselyn states that just letting the leg hang down was severely painful. She has not redeveloped the numbness she had in the ER last evening. Objective Vital Signs Vital signs Vital Signs 01/29/17 01/29/17 01/29/17 01/29/17 05:20 07:27 07:55 08:08 Temp 96.1 97.6 Pulse 66 75 Resp 16 12 12 B/P 131/76 Pulse Ox 95 O2 Delivery Room Air 01/29/17 01/29/17 13:40 15:02 Resp 20 16 Height (Feet): 5 Height (Inches): 6.00 Weight (Kilograms): 98.200 General General Appearance: Alert, No Acute Distress (as long as the leg is elevated and ICE is applied.) Respiratory (Brief) Respiratory Brief: FOUND: non-labored Cardiovascular (Brief) Comments Marked edema in the foot. Integumentary (Brief) Integumentary Brief: FOUND brusing (on the dorsum of the foot.), FOUND dry, FOUND pink, FOUND warm Neurologic (Brief) Neurological Brief: FOUND: extremities w/o deficits, neuro intact Psychiatric (Brief) Psychiatric Brief: FOUND: alert, no acute distress Laboratory Laboratory Laboratory Tests 01/28/17 20:47 01/29/17 04:56 Laboratory Tests 01/28/17 20:47 01/29/17 04:56 Assessment & Plan Problems: (1) Closed fracture dislocation of left ankle Status: Acute Qualifiers: Encounter type: initial encounter Qualified Codes: S82.892A - Other fracture of left lower leg, initial encounter for closed fracture Assessment & Plan: 01/28/17 Closed reduction left ankle fx-dislocation in ER by Dr Ac 01/28. Admitted for observation, elevation, pain control and possible surgery 01/29 if swelling allows. 01/29/17M Swelling is too much for surgery today. Will discuss holding Aggrenox with Dr Brown. Schedule for surgery 02/03 and check her in the office 02/02 to confirm swelling is down. Arrange placement in facility due to her need for non-wt bearing and strict elevation. Pt will not be able to manage at home. Case Management consulted to assist. 01/29/17 PM Still awaiting word from Dr Brown's office on the ability to stop Aggrenox or if bridge therapy is required. Still awaiting final decision on acceptance of pt at [facility]. Pt had severe pain with mobility and required IV Dilaudid. Unknow how she will tolerate transport to the [place] with IV pain medicine is not available at the [place]. I have talked with Dr Ac and he has agreed to reevaluate the swelling in the morning (01/30) to see if surgery would be possible tomorrow. I will give her a dose of Lovenox this evening and address Aggrenox decision with Dr Brown's office in the AM. Continue to hold Aggrenox at this time. Defer on appropriateness of making pt an Inpatient vs outpatient to Case Mgmt. Hospital Course Summary Disclaimer The visit summary below is not to be considered part of the above Progress Note. REYNA CHUNG January 29, 2017 16:40
[2017-01-29] MEDS ORDERED: ENOXAPARIN 40 MG/0.4 ML INJECTION SQ ONE (17:15)
--- NOTE | 2017-01-29 17:15 | NUR ---
ICE, ELEVATION Leg has been elevated all day, and iced most of the day. At this time leg is elevated higher, with gatch at foot of bed up in addition to 4 pillows. Additional large ice packs have been added to completely surround the foot and ankle in attempt to reduce the swelling. There is substantial wrapping between the ice and the ankle/foot due to the presence of the splint and CHUY wrap, however the patient now states that she can feel the cool and that it feels good on her ankle.
[2017-01-29 17:20] VITALS: BP 165/91; PULSE 60; RESP 16; TEMP 97.1; O2SAT 100
[2017-01-29] MEDS: LITHIUM CARBONATE 150 MG PO SCH (17:36)
--- NOTE | 2017-01-29 17:56 | NUR ---
CM THIS WORKER SPOKE TO [facility] ON THIS DATE AND THEY HAD STATED THAT A FULL AMOUNT (7,200) WOULD BE REQUIRED BY FAMILY TO BE ADMITTED TO THEIR FACILITY. THIS WORKER LATER RECEIVED A CALL AT 1705 THAT THEY RECONSIDERED THE SITUATION AND WOULD BE ABLE TO TAKE THE PRO RATED RATE OF 1,170. THIS WORKER UPDATED [facility] ON THIS DATE THAT PT WOULD BE STAYING AT THE HOSPITAL ANOTHER NIGHT. THIS WORKER ADVISED THAT PHYSICIAN WOULD PLAN TO RE-EVALUATED PT ON 01/30/17 AND THAT CASE MANAGEMENT WOULD CONTACT RADHA AT [facility] ON 01/30/17 TO NOTIFY OF THE DISCHARGE PLAN AND PLAN OF CARE FOR PT. THIS WORKER UPDATED PT ON THE ABOVE INFORMATION. PT WILL PLAN TO UPDATE HER .
[2017-01-29] MEDS: LR 1,000 ML IV SCH (19:38)
--- NOTE | 2017-01-29 19:40 | NUR ---
PAIN Patient has been lying in bed and has made no attempts to be up since severe pain with PT/OT when her leg was dependent. The pain is again uncontrolled and patient has requested pain medication. Dilaudid 0.5 mg IV given by slow IV push for pain to left ankle rated "20".
[2017-01-29] MEDS: CYCLOBENZAPRINE 10 MG PO SCH (22:22)
[2017-01-29] MEDS: QUETIAPINE 150 MG PO SCH (22:23)
[2017-01-29] MEDS: --POM--ATORVASTATIN 40 MG TABLET PO SCH (22:23)
[2017-01-29 23:46] VITALS: BP 159/89; PULSE 72; RESP 17; TEMP 96.2; O2SAT 97
[2017-01-30] MEDS: HYDROMORPHONE 2mg/ml INJECTION IV PRN ×2 (01:20→20:39)
--- NOTE | 2017-01-30 03:56 | NUR ---
Chart Check 24 hour chart check completed
[2017-01-30 04:07] VITALS: TEMP 96.5
[2017-01-30] MEDS: LEVOTHYROXINE 100 MCG PO SCH (05:26)
--- NOTE | 2017-01-30 06:03 | NUR ---
SHIFT SUMMARY PT HAS SLEPT SOUNDLY THROUGHOUT THE NIGHT. PT GIVEN NORCO AND DILAUDID FOR PAIN, SEE EMAR FOR TIMES. DENIES N/V/SOA. TURNED Q2H. VSS, ON RA. 1800 ADA DIET, NPO SINCE MIDNIGHT FOR POSSIBLE SURGERY TODAY. USING BEDPAN TO VOID. LR RUNNING @ 50ML/HR IN RIGHT AC. LEFT LOWER EXTREMITY WITH SPLINT AND CHUY WRAP ELEVATED ON PILLOWS, ICE PACKS X 2 ON CONTINUOUSLY. SCD ON RIGHT LEG. BGM THIS AM WAS 115. BED LOCKED AND LOW, BED ALARM ON. CALL LIGHT WITHIN REACH. WILL CONTINUE TO MONITOR.
--- NOTE | 2017-01-30 07:28 | NUR ---
RANULFO DUMONT, IN ROOM FOR PT EVAL/ASSMT
[2017-01-30 07:30] VITALS: BP 109/59; PULSE 70; PULSE 72; RESP 16; TEMP 96.9; O2SAT 90
[2017-01-30] MEDS: METFORMIN 850 MG PO SCH ×2 (08:00→17:30)
--- NOTE | 2017-01-30 08:33 | NUR ---
MAX CM IN TO VISIT WITH PT. CM INTRODUCES HERSELF. CM EXPLAINS THAT SHE IS WAITING TO HEAR FROM DR. BARRIOS IF SURGERY WILL HAPPEN TODAY. ONCE THAT DECISION IS MADE, CM WILL RETURN TO SPEAK WITH PT ABOUT PLANNING. PT VERBALIZED UNDERSTANDING. SHE IS GIVEN UPDATED CM CONTACT INFORMATION.
[2017-01-30] MEDS: RABEPRAZOLE 20 MG PO SCH (09:00)
[2017-01-30] MEDS: LAMOTRIGINE 100 MG PO SCH ×2 (09:00→20:45)
[2017-01-30] MEDS: ESCITALOPRAM 20 MG PO SCH (09:00)
[2017-01-30] MEDS: FERROUS SULFATE 324 MG TABLET PO SCH (09:00)
[2017-01-30] MEDS: DICYCLOMINE 20 MG PO SCH ×4 (09:00→20:45)
[2017-01-30] MEDS: --POM--METOPROLOL TARTRATE 25mg TABLET PO SCH ×2 (09:01→17:30)
[2017-01-30] MEDS: FLUDROCORTISONE 0.1 MG PO SCH (09:02)
[2017-01-30 14:11] VITALS: PULSE 72; RESP 16; O2SAT 96
[2017-01-30] MEDS: LR 1,000 ML IV SCH ×2 (14:27→18:07)
[2017-01-30 15:55] VITALS: BP 147/73; PULSE 55; RESP 16; TEMP 97.2; O2SAT 99
--- NOTE | 2017-01-30 16:55 | DI ---
Indication: ITS.REASON: ankle fracture ANKLE BILATERAL 3 VIEW Comparison: 01/28/2017 left ankle Findings: Patient shows previously noted fractures about the left ankle now stabilized through a cast. A trimalleolar fracture is identified. Patient still shows mild bony offset. Three views of the right ankle show prior surgical intervention into the calcaneus. Moderate sized calcaneal heel spur is seen. Degenerative changes seen about the ankle joint without acute fracture. Impression: 1. Recent trimalleolar fracture involving the left ankle stabilized by cast. Slight bony offset. 2. Postoperative changes about the calcaneus with degenerative changes about the ankle joint and a moderate size calcaneal heel spur. No acute fracture seen. .
[2017-01-30] MEDS: LITHIUM CARBONATE 150 MG PO SCH (17:28)
--- NOTE | 2017-01-30 19:14 | NUR ---
SUMMARY PT VERBALIZES RELIEF THAT THERE IS A WAY SHE CAN BE OUT OF BED. ABLE TO TRANSFER WITH ASSIST OF 1-2. REQUIRES LEFT LE BEING HELD WHILE TRANSFERRING. TOLERATES ELEVATION AND ICE WELL. ABLE TO EAT SOLID FOOD WITHOUT N/V. PO PAIN MEDS MANAGING PAIN THIS SHIFT.
[2017-01-30 19:35] VITALS: PULSE 60; RESP 12
[2017-01-30] MEDS: QUETIAPINE 150 MG PO SCH (20:45)
[2017-01-30] MEDS: CYCLOBENZAPRINE 10 MG PO SCH (20:45)
[2017-01-30] MEDS: --POM--ATORVASTATIN 40 MG TABLET PO SCH (20:45)
[2017-01-31] VITALS: BP 123/65; PULSE 70; RESP 14; TEMP 96.2; O2SAT 98
--- NOTE | 2017-01-31 05:23 | NUR ---
SHIFT SUMMARY PT IS ALERT AND ORIENTED X3, VITAL SIGNS REMAIN STABLE ON ROOM AIR. DENIES C/P,N/V AND SOA. PT HAS USED THE BEDPAN THROUGHOUT THE NIGHT WITH ADEQUATE URINE OUTPUT. PT SHIFTS HERSELF IN BED WITH LEFT LEG ELEVATED ON PILLOWS, ICE PACKS AND CHUY WRAP IN PLACE. PT HAS REQUIRED PRN PAIN MEDICATION THROUGHOUT THE NIGHT. WILL CONTINUE TO MONITOR.
[2017-01-31] MEDS: LEVOTHYROXINE 100 MCG PO SCH (05:49)
[2017-01-31 07:55] VITALS: BP 160/67; PULSE 70; RESP 18; TEMP 96.8; O2SAT 96
[2017-01-31] MEDS: ESCITALOPRAM 20 MG PO SCH (08:32)
[2017-01-31] MEDS: METFORMIN 850 MG PO SCH ×2 (08:32→17:38)
[2017-01-31] MEDS: DICYCLOMINE 20 MG PO SCH ×4 (08:33→20:31)
[2017-01-31] MEDS: LAMOTRIGINE 100 MG PO SCH ×2 (08:34→20:32)
[2017-01-31] MEDS: RABEPRAZOLE 20 MG PO SCH (08:34)
[2017-01-31] MEDS: --POM--METOPROLOL TARTRATE 25mg TABLET PO SCH ×2 (08:35→17:39)
[2017-01-31] MEDS: FLUDROCORTISONE 0.1 MG PO SCH (08:36)
[2017-01-31] MEDS: FERROUS SULFATE 324 MG TABLET PO SCH (08:52)
[2017-01-31 09:45] VITALS: PULSE 70; RESP 18
[2017-01-31 10:10] LABS: ANION GAP 9 MEQ/L (5-15); BUN/CREATININE RATIO 16 RATIO (6-26); CALCIUM 9.5 MG/DL (8.4-10.2); CHLORIDE 105 MEQ/L (98-107); CO2 - CARBON DIOXIDE 29 MEQ/L (22-30); CREATININE 0.7 MG/DL (0.7-1.2); GLOMERULAR FILTRATION RATE 83; GLUCOSE 171 MG/DL (65-110); SODIUM 143 MEQ/L (134-144)
--- NOTE | 2017-01-31 10:17 | PDORTHOPN ---
Subjective Date DATE: 01/31/17 TIME: 10:08 Subjective Yoselyn worked with PT / OT yesterday to see if she would be able to go home or would need placement. She did not do well with mobility and it was clear she would need placement to be safe. Placement has not been arranged yet and Yoselyn does not want to "pay for a whole month" of placement. Unfortunately, she also became very painful and required IV Dilaudid after working with her mobility needs yesterday. Today and last night her pain has improved. She has just needed PO medications, but requires them fairly consistently to keep head of her pain. Their is no note from Cardiology yet, we will continue to hold Aggrenox unless otherwise directed by cardiology. We will continue to cover her with Lovenox until the evening before surgery. Dr. Ac is planning surgery on Thursday at this point. She feels that her swelling has really improved. Objective Vital Signs Vital signs Vital Signs 01/31/17 01/31/17 00:00 07:55 Temp 96.2 96.8 Pulse 70 70 Resp 14 18 B/P 123/65 160/67 Pulse Ox 98 96 O2 Delivery Room Air Room Air Height (Feet): 5 Height (Inches): 6.00 Weight (Kilograms): 86.500 General General Appearance: Alert, Orientated x 3, No Acute Distress Respiratory (Brief) Respiratory Brief: FOUND: non-labored Cardiovascular (Brief) Capillary Refill: <2 sec Musculoskeletal (Brief) Comments splint fitting adequately, I am able to wrinkle the exposed skin over the dorsum of the foot. Integumentary (Brief) Integumentary Brief: FOUND brusing (on the dorsum of the foot.), FOUND dry, FOUND pink, FOUND warm Neurologic (Brief) Neurological Brief: FOUND: extremities w/o deficits, neuro intact Psychiatric (Brief) Psychiatric Brief: FOUND: alert, no acute distress Assessment & Plan Problems: (1) Closed fracture dislocation of left ankle Status: Acute Qualifiers: Encounter type: initial encounter Qualified Codes: S82.892A - Other fracture of left lower leg, initial encounter for closed fracture Assessment & Plan: 01/28/17 Closed reduction left ankle fx-dislocation in ER by Dr Ac 01/28. Admitted for observation, elevation, pain control and possible surgery 01/29 if swelling allows. 5/11/17AM Swelling is too much for surgery today. Will discuss holding Aggrenox with Dr Brown. Schedule for surgery 02/03 and check her in the office 02/02 to confirm swelling is down. Arrange placement in facility due to her need for non-wt bearing and strict elevation. Pt will not be able to manage at home. Case Management consulted to assist. 01/29/17 PM Still awaiting word from Dr Brown's office on the ability to stop Aggrenox or if bridge therapy is required. Still awaiting final decision on acceptance of pt at [facility]. Pt had severe pain with mobility and required IV Dilaudid. Unknow how she will tolerate transport to the [place] with IV pain medicine is not available at the [facility]. I have talked with Dr Ac and he has agreed to reevaluate the swelling in the morning (01/30) to see if surgery would be possible tomorrow. I will give her a dose of Lovenox this evening and address Aggrenox decision with Dr Brown's office in the AM. Continue to hold Aggrenox at this time. Defer on appropriateness of making pt an Inpatient vs outpatient to Case Mgmt. 01/30/[address] word [address] Brown's office on the ability to stop Aggrenox or if bridge therapy is required. Still awaiting final decision on acceptance of pt at [facility]. I anticipate she will be here through the weekend unless case management can come up with another acceptable option for her. I will change her pain medication to a scheduled basis in an effort to avoid IV medication I will continue her Lovenox until Thursday, when an order will be needed to discontinue for surgery NPO after midnight on Thu Continue to hold Aggrenox unless otherwise directed by cardiology. Hospital Course Summary Disclaimer The visit summary below is not to be considered part of the above Progress Note. BRIANDA BROUSSARD January 31, 2017 10:12
[2017-01-31] MEDS: LR 1,000 ML IV SCH (15:30)
[2017-01-31 16:11] VITALS: BP 137/74; PULSE 67; RESP 16; TEMP 97.2; O2SAT 95
--- NOTE | 2017-01-31 17:00 | NUR ---
STATUS PATIENT IS ALERT AND ORIENTED X3. PATIENT VITALS ARE STABLE AND PATIENT IS ON ROOM AIR. PATIENT IS UP WITH 2X ASSIST GB, AND FWW. PATIENT HAD 1X BM TODAY. PATIENT IS NON WEIGHT BEARING ON THE LEFT ANKLE. LEFT PEDAL PULSE IS WEAK UPON PALPATION. PATIENT HAS SCHEDULED NORCO. WILL CONTINUE TO MONITOR.
[2017-01-31] MEDS: LITHIUM CARBONATE 150 MG PO SCH (17:39)
--- NOTE | 2017-01-31 18:32 | NUR ---
SHIFT SUMMARY ALERT AND ORIENTED X3. VITAL SIGNS STABLE. O2 RA. DENIES CHEST PAIN, N/V, OR SHORTNESS OF AIR. PATIENT HAS USED BED FERNANDEZ AND TO TO BEDSIDE COMMODE WITH GAIT BELT, WALKER, AND ASSIST X2 FROM NURSING STAFF. UP TO RECLINER FOR MEALS. LEFT LOWER EXTREMITY ELEVATED ON THREE PILLOWS. ICE PACK IN PLACE. PATIENT HAS SCHEDULED NORCO SHE HAS TAKEN THROUGHOUT THE AFTERNOON. CURRENTLY UP TO RECLINER, LOWER EXTREMITIES ELEVATED. CHAIR ALARM ACTIVATED AND CALL LIGHT WITHIN REACH. FAMILY AT BEDSIDE VISITING.
[2017-01-31 20:00] VITALS: PULSE 69; RESP 18
[2017-01-31] MEDS: --POM--ATORVASTATIN 40 MG TABLET PO SCH (22:00)
[2017-01-31] MEDS: CYCLOBENZAPRINE 10 MG PO SCH (22:01)
[2017-01-31] MEDS: QUETIAPINE 150 MG PO SCH (22:02)
--- NOTE | 2017-01-31 23:43 | NUR ---
Chart Check 24 hour chart check completed
[2017-02-01] VITALS (7 sets, daily range): BP systolic 125–165; BP diastolic 65–74; PULSE 60–70; RESP 16–18; TEMP 95.9–98.3; O2SAT 94–100
--- NOTE | 2017-02-01 05:01 | NUR ---
STATUS PATIENT IS ALERT AND ORIENTATEDX3.PATIENT VITALS ARE STABLE.ON ROOM AIR. DENIES CHEST PAIN,SOA,OR N/V. HAD ONE BM DURING NIGHT. PATIENT HAS USED BED FERNANDEZ AND BEDSIDE COMMODE WITH GAIT BELT,WALKER AND ASSISTX2 FROM NURSING STAFF. ADEQUATE URINARY OUTPUT. PATIENT HAS SCHEDULED NORCO FOR PAIN.NO WEIGHT BEARING ON THE LEFT ANKLE. PATIENT IS RESTING IN BED WELL AT THIS TIME.LEFT LOWER EXTREMITY ELEVATED ON THREE PILLOWS. ICE PAD APPLIED AT LT ANKLE AREA. CALL LIGHT WITHIN REACH. BED ALARM ON. CONTINUE TO MONITOR.
[2017-02-01] MEDS: LEVOTHYROXINE 100 MCG PO SCH (06:00)
[2017-02-01] MEDS: METFORMIN 850 MG PO SCH ×2 (08:38→17:10)
[2017-02-01] MEDS: RABEPRAZOLE 20 MG PO SCH (08:39)
[2017-02-01] MEDS: --POM--METOPROLOL TARTRATE 25mg TABLET PO SCH ×2 (08:39→17:12)
[2017-02-01] MEDS: DICYCLOMINE 20 MG PO SCH ×4 (08:39→21:00)
[2017-02-01] MEDS: LAMOTRIGINE 100 MG PO SCH ×2 (08:40→21:00)
[2017-02-01] MEDS: FLUDROCORTISONE 0.1 MG PO SCH (08:40)
[2017-02-01] MEDS: ESCITALOPRAM 20 MG PO SCH (08:41)
[2017-02-01] MEDS: FERROUS SULFATE 324 MG TABLET PO SCH (09:00)
[2017-02-01] MEDS: LR 1,000 ML IV SCH (12:26)
[2017-02-01] MEDS: LITHIUM CARBONATE 150 MG PO SCH (17:11)
--- NOTE | 2017-02-01 17:29 | NUR ---
STATUS PT IS A&OX3. VSS. PT UP TO RECLINER AND BSC X2 ASSIST, SUSPENDING LEFT FOOT IN TOWEL TO MAINTAIN ZERO WEIGHT BEARING. RN OBSERVED SWELLING IN TOES TO DECREASE DURING SHIFT. PT REPORTS THAT CASTING FEELS "LOOSE." RN INSPECTED DRESSING AND SECURED CHUY BANDAGES. PT DENIES PAIN THROUGHOUT SHIFT WITH SCHEDULED NORCO ADMINISTERED. RN OBSERVED PT TO SCOWL DURING AMBULATION, PT DENIES PAIN ONCE MOVE IS COMPLETE. PT PLEASANT AND COOPERATIVE WITH CARES. PT'S AND GRANDDAUGHTER VISITED DURING THE AFTERNOON AND THEN PT NAPPED FOR APPROXIMATELY 1 HR. PT IS SEATED IN RECLINER, LEFT FOOT ELEVATED WITH ICE PACKS, CALL LIGHT WITHIN REACH.
[2017-02-01] MEDS: ENOXAPARIN 40 MG/0.4 ML INJECTION SQ SCH (21:22)
[2017-02-01] MEDS: CYCLOBENZAPRINE 10 MG PO SCH (21:24)
[2017-02-01] MEDS: QUETIAPINE 150 MG PO SCH (21:25)
[2017-02-01] MEDS: --POM--ATORVASTATIN 40 MG TABLET PO SCH (21:25)
[2017-02-02] MEDS: LEVOTHYROXINE 100 MCG PO SCH (05:41)
--- NOTE | 2017-02-02 06:07 | NUR ---
SHIFT SUMMARY PT ALERT AND ORIENTED X3,VITAL SIGNS ARE STABLE ON ROOM AIR. DENIES C/P,N/V AND SOA. PT WAS UP IN THE RECLINER AT START OF SHIFT UNTIL 2129 THEN RETURNED TO BED WITH A 2 PERSON ASSIST. PT ASSISTED TO BSC TWICE BEFORE BED, WHILE IN BED PT USED THE BEDPAN. LEFT LEG IS ELEVATED ON 2 PILLOWS WITH BILATERAL ICE PACKS IN PLACE TO REDUCE SWELLING. SWELLING HAS DECREASED AND THE CAST IS NOTED TO BE MUCH LOOSER. PT HAS HAD ADEQUATE URINE OUTPUT AND HAD 2 BM'S ON THIS SHIFT. WILL CONTINUE TO MONITOR.
[2017-02-02 07:55] VITALS: BP 147/75; PULSE 75; RESP 16; TEMP 97.5; O2SAT 92
[2017-02-02 07:58] VITALS: PULSE 75; RESP 16
[2017-02-02] MEDS ORDERED: NOZIN NASAL SWAB NS ONE (08:00)
--- NOTE | 2017-02-02 08:15 | PDORTHOPN ---
Subjective Date DATE: 02/02/17 TIME: 07:58 Subjective Pain is under control. No new complaints. Objective Vital Signs Vital signs Vital Signs 02/01/17 02/01/17 02/02/17 20:15 23:38 07:55 Temp 97.7 97.5 Pulse 60 60 75 Resp 18 18 16 B/P 165/72 147/75 Pulse Ox 100 92 O2 Delivery Room Air Room Air Height (Feet): 5 Height (Inches): 6.00 Weight (Kilograms): 87.300 General General Appearance: Alert, No Acute Distress Respiratory (Brief) Respiratory Brief: FOUND: non-labored Musculoskeletal (Brief) Comments Continues to have edema of the left foot. Integumentary (Brief) Integumentary Brief: FOUND dry, FOUND pink, FOUND warm Neurologic (Brief) Neurological Brief: FOUND: extremities w/o deficits, neuro intact Psychiatric (Brief) Psychiatric Brief: FOUND: alert, no acute distress Laboratory Laboratory Laboratory Tests 01/31/17 09:56 Assessment & Plan Problems: (1) Closed fracture dislocation of left ankle Status: Acute Qualifiers: Encounter type: initial encounter Qualified Codes: S82.892A - Other fracture of left lower leg, initial encounter for closed fracture Assessment & Plan: 01/28/17 Closed reduction left ankle fx-dislocation in ER by Dr Ac 01/28. Admitted for observation, elevation, pain control and possible surgery 01/29 if swelling allows. 01/29/17M Swelling is too much for surgery today. Will discuss holding Aggrenox with Dr Brown. Schedule for surgery 02/03 and check her in the office 02/02 to confirm swelling is down. Arrange placement in facility due to her need for non-wt bearing and strict elevation. Pt will not be able to manage at home. Case Management consulted to assist. 01/29/17 PM Still awaiting word from Dr Brown's office on the ability to stop Aggrenox or if bridge therapy is required. Still awaiting final decision on acceptance of pt at [facility]. Pt had severe pain with mobility and required IV Dilaudid. Unknown how she will tolerate transport to the [place] with IV pain medicine is not available at the [place]. I have talked with Dr Ac and he has agreed to reevaluate the swelling in the morning (01/30) to see if surgery would be possible tomorrow. I will give her a dose of Lovenox this evening and address Aggrenox decision with Dr Brown's office in the AM. Continue to hold Aggrenox at this time. Defer on appropriateness of making pt an Inpatient vs outpatient to Case Mgmt. 01/30/[address] word from [address] Brown's office on the ability to stop Aggrenox or if bridge therapy is required. Still awaiting final decision on acceptance of pt at [facility]. I anticipate she will be here through the weekend unless case management can come up with another acceptable option for her. I will change her pain medication to a scheduled basis in an effort to avoid IV medication I will continue her Lovenox until Thursday, when an order will be needed to discontinue for surgery NPO after midnight on Thu Continue to hold Aggrenox unless otherwise directed by cardiology. 02/01/17 Edema still present. Lovenox daily. Next dose tonight at 9pm. Planning ORIF left ankle 02/02/17. Nozin ordered along with pre op antibiotics. Blood sugars noted. Cont carb controlled diet. Check labs for surgery in AM. NPO fpr surgery tomorrow. Hospital Course Summary Disclaimer The visit summary below is not to be considered part of the above Progress Note. REYNA CHUNG February 02, 2017 08:10
[2017-02-02] MEDS: --POM--METOPROLOL TARTRATE 25mg TABLET PO SCH ×2 (08:39→17:27)
[2017-02-02] MEDS: METFORMIN 850 MG PO SCH ×2 (08:39→17:26)
[2017-02-02] MEDS: RABEPRAZOLE 20 MG PO SCH (08:40)
[2017-02-02] MEDS: DICYCLOMINE 20 MG PO SCH ×4 (08:40→21:05)
[2017-02-02] MEDS: ESCITALOPRAM 20 MG PO SCH (08:41)
[2017-02-02] MEDS: FLUDROCORTISONE 0.1 MG PO SCH (08:41)
[2017-02-02] MEDS: LAMOTRIGINE 100 MG PO SCH ×2 (08:42→21:07)
[2017-02-02 08:44] LABS: BASOPHILS % (AUTO) 0.7 % (0-2); EOSINOPHILS # (AUTO) 0.3 T/MM3 (0-0.5); EOSINOPHILS % (AUTO) 4.9 % (0-4); HGB - HEMOGLOBIN 9.5 GM/DL (12-16); IMMATURE GRANULOCYTE # (AUTO) 0.01 T/MM3 (0.00-0.03); IMMATURE GRANULOCYTE % (AUTO) 0.2 % (0.0-0.5); LYMPHOCYTES # (AUTO) 1.7 T/MM3 (1-4.8); LYMPHOCYTES % (AUTO) 30.3 % (23-45); MEAN CORPUSCULAR HGB 29.7 UUG (26-34); MEAN CORPUSCULAR HGB CONC(MCHC 31.7 GM/DL (31-37); MEAN CORPUSCULAR VOLUME 93.8 UM3 (80-100); MEAN PLATELET VOLUME 8.6 UM3 (9.4-12.4); MONOCYTES # (AUTO) 0.3 T/MM3 (0-0.8); MONOCYTES % (AUTO) 4.9 % (0-9.0); NEUTROPHILS #(AUTO)-ABSOLUTE 3.3 T/MM3 (1.8-7.7); WBC - WHITE BLOOD COUNT 5.5 T/MM3 (4.5-11.0)
[2017-02-02] MEDS: LR 1,000 ML IV SCH (08:44)
[2017-02-02 08:54] LABS: ANION GAP 10 MEQ/L (5-15); BUN/CREATININE RATIO 17 RATIO (6-26); CALCIUM 8.8 MG/DL (8.4-10.2); CHLORIDE 104 MEQ/L (98-107); CO2 - CARBON DIOXIDE 30 MEQ/L (22-30); CREATININE 0.6 MG/DL (0.7-1.2); GLOMERULAR FILTRATION RATE 99; GLUCOSE 120 MG/DL (65-110); POTASSIUM 3.9 MEQ/L (3.6-5); SODIUM 144 MEQ/L (134-144)
[2017-02-02] MEDS: FERROUS SULFATE 324 MG TABLET PO SCH (09:04)
[2017-02-02] MEDS: ENOXAPARIN 40 MG/0.4 ML INJECTION SQ SCH (09:04)
[2017-02-02 16:28] VITALS: BP 142/71; PULSE 71; RESP 18; TEMP 97.8; O2SAT 92
[2017-02-02] MEDS: LITHIUM CARBONATE 150 MG PO SCH (17:26)
--- NOTE | 2017-02-02 18:28 | NUR ---
PROGRESS NOTE PT ALERT AND ORIENTED X3. VITAL SIGNS STABLE, ON RA. THE PT WAS UP TO THE RECLINER FOR BREAKFAST IN THE AM AND WAS MOVED BACK TO BED AND HAD HER LEFT LOWER EXTREMITY ELEVATED FOR THE REMAINDER OF THE SHIFT. THE PT HAS BEEN USING THE BEDPAN AND HAS HAD ADEQUATE URINE OUTPUT THIS SHIFT. THE PT DIET WILL CHANGE TO NPO AT MIDNIGHT WITH PLAN TO HAVE SURGERY ON 02/03. NO CONCERNS NOTED. WILL CONTINUE TO MONITOR.
[2017-02-02 19:27] VITALS: PULSE 75
[2017-02-02] MEDS: QUETIAPINE 150 MG PO SCH (21:05)
[2017-02-02] MEDS: CYCLOBENZAPRINE 10 MG PO SCH (21:06)
[2017-02-02] MEDS: --POM--ATORVASTATIN 40 MG TABLET PO SCH (21:06)
[2017-02-02 23:53] VITALS: BP 151/77; PULSE 86; RESP 18; TEMP 98.4; O2SAT 97
--- NOTE | 2017-02-02 23:55 | NUR ---
Chart Check 24 hour chart check completed
[2017-02-03] VITALS (70 sets, daily range): BP systolic 92–192; BP diastolic 53–117; PULSE 60–87; RESP 12–64; TEMP 97.7–98.5; O2SAT 60–100
[2017-02-03] MEDS: LR 1,000 ML IV SCH (05:07)
--- NOTE | 2017-02-03 05:13 | NUR ---
SHIFT SUMMARY PT HAS SLEPT SOUNDLY THROUGHOUT THE NIGHT. PT GIVEN SCHEDULED NORCO BEFORE MIDNIGHT AND HAS DENIED NEED FOR PAIN MEDICINE SINCE THEN. DENIES N/V/SOA. PT ABLE TO REPOSITION SELF. VSS, ON RA. NPO SINCE MIDNIGHT FOR SURGERY TODAY. USING BEDPAN TO VOID-ADEQUATE OUTPUT. LR RUNNING @ 50ML/HR IN LEFT MIDLINE. LEFT LOWER EXTREMITY WITH SPLINT AND CHUY WRAP ELEVATED ON BONE FOAM, PILLOWS, ICE PACKS X 2 ON CONTINUOUSLY. SCD ON RIGHT LEG. BGM THIS AM WAS 115. BED LOCKED AND LOW, BED ALARM ON. CALL LIGHT WITHIN REACH. WILL CONTINUE TO MONITOR.
[2017-02-03] MEDS: HYDROMORPHONE 2mg/ml INJECTION IV PRN ×4 (05:23→22:14)
[2017-02-03] MEDS: LEVOTHYROXINE 100 MCG PO SCH (06:30)
[2017-02-03] MEDS: --POM--METOPROLOL TARTRATE 25mg TABLET PO SCH ×2 (07:24→20:57)
--- NOTE | 2017-02-03 07:35 | NUR ---
LEFT FLOOR PT LEFT THE FLOOR AT THIS TIME. PT IS ALERT AND ORIENTED X3. VITAL SIGNS STABLE, ON RA. CONSENT SIGNED. THIS RN SPOKE WITH DR. BARRIOS AND RECEIVED TELEPHONE ORDERS TO GIVE THE PT'S SCHEDULED METOPROLOL PRIOR TO SURGERY. NO CONCERNS NOTED AT THIS TIME.
--- NOTE | 2017-02-03 07:51 | ANESPREOP ---
Anesthesia Record Date and Time DATE: 02/03/17 TIME: 07:48 Pre-Op Diagnosis Fx Left Ankle Proposed Surgical Procedure ORIF Left Ankle NPO since: [place] Allergies: Coded Allergies: aripiprazole (Verified Allergy, Unknown, RASH, 01/29/17) trazodone (Verified Allergy, Unknown, RASH, 01/29/17) cephalexin (Verified Adverse Reaction, Unknown, NAUSEA, 01/29/17) ziprasidone (Verified Adverse Reaction, Unknown, N/V, 01/29/17) Ht/Wt/BMI Height: 5 ' 6.00 " Weight: 87.800 kg BMI: 34.9 kg/m2 Vital Signs Date Time Temp Pulse Resp B/P Pulse Ox O2 Delivery O2 Flow Rate FiO2 02/03/17 07:32 87 18 02/03/17 07:25 97.7 166/81 93 Room Air Medications Inpatient Medications Current Medications Medications (Trade) Dose Ordered Sig/Angle Start Time Stop Time Status Last Admin Dose Admin Lactated Ringer's (Lactated Ringers) 1,000 ml @ 50 mls/hr Q20H 01/28/17 22:27 02/03/17 05:07 50 MLS/HR Hydromorphone HCl (Dilaudid) 0.5-1 mg IV Q1H PRN pain Q1H PRN 01/28/17 22:30 02/03/17 05:23 0.5 MG Metoclopramide HCl (REGLAN Inj) 10 mg PREOP PRN 01/28/17 22:30 Ondansetron HCl (Zofran) 4 mg PREOP PRN 01/28/17 22:30 02/02/17 21:40 DC 02/02/17 21:40 4 MG Acetaminophen (Tylenol Extra Strength) 500 mg QID PRN 01/29/17 07:15 01/31/17 10:20 DC Atorvastatin Calcium (LIPITOR 40 mg) 40 mg HS 01/29/17 22:00 02/02/17 21:06 40 MG Cyclobenzaprine HCl (Flexeril) 10 mg HS 01/29/17 22:00 02/02/17 21:06 10 MG Dicyclomine HCl (Bentyl) 20 mg QID 01/29/17 09:00 02/02/17 21:05 20 MG Docusate Sodium (Colace) 100 mg DAILY PRN 01/29/17 07:15 01/31/17 08:38 100 MG Escitalopram Oxalate (LEXAPRO 20mg) 20 mg DAILY 01/29/17 09:00 02/02/17 08:41 20 MG Ferrous Sulfate (Feosol) 324 mg DAILY 01/29/17 09:00 02/02/17 09:04 324 MG Fludrocortisone Acetate (Florinef) 0.1 mg DAILY 01/29/17 09:00 02/02/17 08:41 0.1 MG Acetaminophen/ Hydrocodone Bitart ([place] 7.5/325) prn Q4H PRN 01/29/17 07:15 01/31/17 10:20 DC 01/31/17 08:31 2 TAB Lamotrigine (Lamictal) 100 mg BID 01/29/17 09:00 02/02/17 21:07 100 MG Levothyroxine Sodium (Synthroid) 100 mcg ACB 01/29/17 09:00 02/02/17 05:41 100 MCG [place] Carbonate ([place]) 150 mg WS 01/29/17 17:30 02/02/17 17:26 150 MG Lorazepam (Ativan) 1 mg TID PRN 01/29/17 07:15 Metformin HCl (Glucohage) 850 mg BIDWM 01/29/17 08:00 02/02/17 17:26 850 MG Metoprolol Tartrate (Lopressor) 12.5 mg BIDWM 01/29/17 08:00 02/03/17 07:24 12.5 MG Quetiapine Fumarate (Seroquel Xr) 150 mg HS 01/29/17 22:00 02/02/17 21:05 150 MG Rabeprazole Sodium (Aciphex) 20 mg DAILY 01/29/17 09:00 02/02/17 08:40 20 MG Acetaminophen/ Hydrocodone Bitart ([place] 7.5/325) Give 1-2 tabs Q4H. Q4H 01/31/17 12:30 02/02/17 21:04 1 TAB Enoxaparin Sodium (Lovenox) 40 mg DAILY 02/01/17 21:00 02/02/17 09:04 40 MG Acetaminophen (Acetaminophen) 500 Mg Tablet, 500 MG PO QID PRN for PAIN, ( Reported) Last Taken: on Unknown Date & Time Aspirin/Dipyridamole (Aggrenox 25 mg- 200 mg Capsule) 1 Cap Capsule, 1 CAP PO BID, (Reported) Last Taken: on 01/28/171799 Atorvastatin Calcium (Atorvastatin Calcium) 40 Mg Tablet, 40 MG PO HS, (Reported) Last Taken: on 01/27/171999 Cyclobenzaprine HCl (Cyclobenzaprine HCl) 10 Mg Tablet, 10 MG PO HS, (Reported) Last Taken: on 01/27/171999 Dicyclomine HCl (Dicyclomine HCl) 20 Mg Tablet, 20 MG PO QID, (Reported) Last Taken: on 01/28/171799 Docusate Sodium (Docusate Sodium) 100 Mg Capsule, 100 MG PO DAILY PRN for CONSTIPATION, (Reported) Last Taken: on Unknown Date & Time Escitalopram Oxalate (Lexapro) 20 Mg Tablet, 20 MG PO DAILY, (Reported) Last Taken: on 01/28/17 0800 Ferrous Sulfate (Ferrous Sulfate) 324 Mg Tablet.dr, 324 MG PO DAILY, (Reported) Last Taken: on Unknown Date & Time Fludrocortisone Acetate ( Fludrocortisone Acetate) 0.1 Mg Tablet, 0.1 MG PO DAILY, (Reported) Last Taken: on 01/28/17 0800 Hydrocodone/Acetaminophen (Hydrocodon- Acetaminoph 7.5-325) 7.5-325 Tablet, 1-2 TAB PO Q4-6H PRN for PAIN, (Reported) Last Taken: on Unknown Date & Time Lamotrigine (Lamictal) 100 Mg Tablet, 100 MG PO BID, (Reported) Last Taken: on 01/28/171799 Levothyroxine Sodium (Levothyroxine Sodium) 100 Mcg Tablet, 100 MCG PO DAILY, (Reported) Last Taken: on 01/28/17 0800 [place] Carbonate ([place] Carbonate) 150 Mg Capsule, 150 MG PO WS, (Reported) Last Taken: on 01/28/17 1800 Lorazepam (Ativan) 1 Mg Tablet, 1 MG PO TID PRN for ANXIETY, (Reported) Last Taken: on Unknown Date & Time Metformin Hcl (Glucophage) 850 Mg Tablet , 850 MG PO BID, (Reported) Last Taken: on 01/28/17 1800 Metoprolol Tartrate (Metoprolol Tartrate) 25 Mg Tablet, 0.5 TAB PO BIDWM, (Reported) Last Taken: on 01/28/171799 Quetiapine Fumarate (Seroquel Xr) 150 Mg Tablet , 150 MG PO HS, (Reported) Last Taken: on 01/27/171999 Rabeprazole Sodium (Aciphex) 20 Mg Tablet.dr, 20 MG PO DAILY, (Reported) Last Taken: on 01/28/17 0800 Currently on Beta Bert: Yes Beta Bert Last Taken: 02/03/17 Medical/Surgical History Anesthesia PMH: Reports: *Angina (NO CHEST PAIN FOR OVER 6 MO), *Hypertension ( TAKES MEDS), *CT (TWO), Anxiety, Arthritis (PER H&P), CVA/Stroke/TIA (08/2014 PER H&P), Cardiac Arrythmia (IMPLANTED LINQ MONITOR, HISTORY OF CARDIAC ARREST X 2), Clotting Problems (ON AGGRENOX), Depression, Headaches (occasional), Hiatal Hernia (PER PAST ADMIT), Obesity, Reflux (PER PAST ADMIT), Thyroid Disease (HYPOTHYROIDISM PER H&P), Denies: *Diabetes, *Dyspnea, Anesthesia Reactions, Asthma, Blood Transfusion Reac, CHF, COPD, Cancer (PRE CANCER ON SKIN OF EAR), Deep Vein Thrombosis, Glaucoma, Hepatitis, Malignant Hyperthermia , Pacemaker, Pneumonia, Renal Disease, Rheumatic Fever, Seizures, Sleep Apnea, Tuberculosis Smoking Status: Never smoker Use Chewing Tobacco?: No Second Hand Exposure: No Substance Use Type: does not use Alcohol Intake: none Past Surgical History Orthopedic Surgeries: Yes - NECK FUSION 1982, BACK FUSION 2009, SALVATORE. TKA,R. ANKLE X 5 Abdominal Surgeries: Yes - LAP KAREY; APPY PER Genitourinary Surgeries: No Cardiac Surgeries: Yes - HEART MONITOR IMPLANT 2013, HEART CATH. 2015 Endocrine Surgeries: No Reproductive Surgeries: Yes - HYST Neurological Surgeries: Yes - NECK FUSION, BACK FUSION Ear Surgeries: No Nose Surgeries: No Throat Surgeries: No Other Surgeries: Yes - SALVATORE. CAT, REMOVAL OF TWO RIBS Anesthesia Adverse Reactions: FOUND none Family Hx of Anesthesia Advers: none Hx of Motion Sickness: No Pertinent Findings Laboratory Tests 02/02/17 08:35 EKG Rhythm: Sinus Rhythm Physical Exam Respiratory: Bilat breath sounds equal, Lungs clear Cardiovascular: FOUND Regular rate, rhythm, FOUND No murmur Airway Assessment Mallampati Score: I TMD: 3 Fingerbreadths Neck Extension: Good Teeth: Upper Dentures, Lower Dentures Overall Assessment: No Airway Concerns ASA: 3 Plan Anesthesia Plan: LMA, GETA Peripheral Nerve Block: Popliteal - LT Discussion Discussed risks/options/alternatives of anesthesia and questions answered. Patient consents. Nursing pain assessment noted. Present: Spouse Attestation Statement Prior to the delivery of any anesthetic medication, I examined the patient, developed the plan, obtained the patient's consent and discussed the risk and benefits of the procedure with the patient/guardian. MARIO LEDBETTER BROADCAST TRAFFIC COORDINATOR February 03, 2017 07:51
[2017-02-03] MEDS ORDERED: NOZIN NASAL SWAB NS ONE ×2 (08:00→14:15)
[2017-02-03] MEDS: METFORMIN 850 MG PO SCH (08:00)
[2017-02-03] MEDS ORDERED: MIDAZOLAM 2mg/2ml INJECTION IV ONE (08:15)
[2017-02-03] MEDS ORDERED: FENTANYL 100mcg/2ml INJECTION IV ONE (08:30)
[2017-02-03] MEDS: DICYCLOMINE 20 MG PO SCH ×3 (09:00→16:38)
[2017-02-03] MEDS: LAMOTRIGINE 100 MG PO SCH ×2 (09:00→20:58)
[2017-02-03] MEDS: ENOXAPARIN 40 MG/0.4 ML INJECTION SQ SCH (09:00)
--- NOTE | 2017-02-03 09:05 | ANESPD ---
Peripheral Nerve Blockade Physician: Cash Ac MD Date: 02/03/17 Surgical Procedure: ORIF Left Ankle Discussion Discussed risks/options/alternatives of anesthesia and questions answered. Patient consents. Nursing pain assessment noted. Block Start: 08:33 Block Stop: 08:44 Block Employed: Popliteal Indication: post-operative pain Approach: left side confirmed Position: RLD Patient: Consent, risks/benefits discussed, Informed, post block act. discussed Monitors: EKG, SpO2, NIBP IV Sedation: Yes Sedation: sedate w/meaningful contact Midazolam (mg): 2 Fentanyl (mcg): 50 Initial Vital Signs First Documented Vital Signs Date Time Temp Pulse Resp B/P Pulse Ox O2 Delivery O2 Flow Rate FiO2 01/30/17 04:07 96.5 01/30/17 07:30 70 16 109/59 90 Room Air 02/03/17 08:25 3.00 Post Vital Signs Vital Signs Date Time Temp Pulse Resp B/P Pulse Ox O2 Delivery O2 Flow Rate FiO2 02/03/17 08:55 65 16 164/77 92 Nasal Cannula 3.00 02/03/17 07:52 98.3 Initial Pain Score: 10 Post Block Score: 0 Prep: chlorhexadine/ETOH Ultrasound Used?: Yes Nerve Simulator mA set at: 1.0 Twitch at: 1 Hz Muscle Response: No Parathesia/Pain: none Injectate Ropivacaine (%): 0.5 Ropivacaine (mL): 30 Was Epi 1:200,000 Used?: No Injection Injection made incrementally with constant monitoring and aspiration every [5] ml. MARIO LEDBETTER CRNA February 03, 2017 09:05
--- NOTE | 2017-02-03 09:06 | ANESPD ---
Peripheral Nerve Blockade Physician: Cash Ac MD Date: 02/03/17 Surgical Procedure: orif left ankle Discussion Discussed risks/options/alternatives of anesthesia and questions answered. Patient consents. Nursing pain assessment noted. Block Start: 08:49 Block Stop: 08:53 Block Employed: Adductor Canal Indication: post-operative pain Approach: left side confirmed Position: supine Patient: Consent, risks/benefits discussed, Informed, post block act. discussed Monitors: EKG, SpO2, NIBP IV Sedation: No Initial Vital Signs First Documented Vital Signs Date Time Temp Pulse Resp B/P Pulse Ox O2 Delivery O2 Flow Rate FiO2 01/30/17 04:07 96.5 01/30/17 07:30 70 16 109/59 90 Room Air 02/03/17 08:25 3.00 Post Vital Signs Vital Signs Date Time Temp Pulse Resp B/P Pulse Ox O2 Delivery O2 Flow Rate FiO2 02/03/17 08:55 65 16 164/77 92 Nasal Cannula 3.00 02/03/17 07:52 98.3 Initial Pain Score: 8 Post Block Score: 2 Prep: chlorhexadine/ETOH Ultrasound Used?: Yes Injectate Ropivacaine (%): 0.5 Ropivacaine (mL): 10 Was Epi 1:200,000 Used?: No Injection Injection made incrementally with constant monitoring and aspiration every [5] ml. PHILOMENA SOUTH CRNA February 03, 2017 09:06
[2017-02-03] MEDS ORDERED: CLINDAMYCIN 900mg IVPB 50 ML IV ONE (11:00)
--- NOTE | 2017-02-03 11:42 | PDPROCED ---
Immediate Operative Note DATE: 02/03/17 TIME: 11:41 Preop Diagnosis: left ankle fracture dislocation Postop Diagnosis: same Surgical Procedures: Other (left ankle ORIF) Surgeon: Osorio Small Engine Specialist: RANULFO Muñoz Anesthesia: Regional Pertinent Findings: poor bone quality Complications: none Estimated Blood Loss minimal ILAN BARRIOS MD February 03, 2017 11:42
--- NOTE | 2017-02-03 11:50 | DI ---
Indication: ITS.REASON: ORIF LT ANKLE PROCEDURE: RF ANKLE LEFT 2 VIEW: Encounter: Initial Comparison: Ankle radiographs dated January 30, 2017 Findings: Seven fluoroscopic spot images are submitted for dictation. Images show open reduction and internal fixation of the left ankle fractures with placement of a lateral side plate and screws across the fibular fracture and a single threaded cannulated lag screw across the medial malleolar fracture. Improved alignment of the fracture fragments. Impression: Fluoroscopy as above. Fluoroscopy time is 95.3 seconds. Fluoroscopy dose is 344.3 mRad. .
[2017-02-03] MEDS ORDERED: MILK OF MAGNESIA 30 ML SUSP PO PRN (12:15)
[2017-02-03] MEDS ORDERED: INSULIN ASPART 100 UNIT/ML SQ PRN (12:15)
--- NOTE | 2017-02-03 12:45 | ANESPO ---
Post-Op Note Date 02/03/17 Time: 12:44 Status Pt Participated in Evaluation: Pt participated in person Vital Signs Date Time Temp Pulse Resp B/P Pulse Ox O2 Delivery O2 Flow Rate FiO2 02/03/17 12:15 71 28 151/68 98 Nasal Cannula 2.00 02/03/17 12:03 98.5 Respiratory Function: Airway patent, Regular respirations Cardiovascular Function: Regular pulse Telemetry Pattern: SR Mental Status: Alert/oriented Pain Level Intensity: 0 Unable to Assess Pain Due To: Pt Sleeping Hydration: IV infusing Complications during Recovery None apparent Follow-Up Instructions Instructions Per Surgeon MARIO LEDBETTER CRNA February 03, 2017 12:45
--- NOTE | 2017-02-03 13:00 | NUR ---
MAX CM IN TO VISIT PATIENT, SHE IS STILL IN SURGERY. WAS IN THE ROOM AND WE VISITED ABOUT DISCHARGE OPTIONS, WILL FOLLOW TO SEE HOW SHE WORKS WITH PT TOMORROW. CM CONTACT INFORMATION GIVEN.
--- NOTE | 2017-02-03 13:12 | NUR ---
ARRIVAL TO FLOOR PT ARRIVED BACK TO THE FLOOR AT THIS TIME. PT ALERT AND ORIENTED X3 BUT SLEEPY AT THIS TIME. THE PT IS RESTING IN BED, , DEEPA PRESENT AT THIS TIME. POST OP VITAL SIGNS STARTED, WILL CONTINUE TO MONITOR.
[2017-02-03] MEDS: NORMAL SALINE 1,000 ML IV SCH (13:14)
[2017-02-03] MEDS: CLINDAMYCIN 900mg IVPB 50 ML IV SCH ×2 (15:40→21:01)
[2017-02-03] MEDS: FERROUS SULFATE 324 MG TABLET PO SCH (16:35)
--- NOTE | 2017-02-03 16:35 | OPNOTEF ---
DATE 02/03/2017 PREOPERATIVE DIAGNOSIS Left ankle trimalleolar fracture dislocation. POSTOPERATIVE DIAGNOSIS Left ankle trimalleolar fracture dislocation. PROCEDURE Open reduction internal fixation of left trimalleolar ankle fracture. SURGEON Melo Ac MD OVEN DUMPER Preston So PA-C COMPLICATIONS None ANESTHESIA Regional block DESCRIPTION OF PROCEDURE The patient and her operative ankle were identified and marked in the preoperative holding area. She was brought back to the operative suite, regional block was administered and then the left lower extremity was prepped and draped in my normal sterile fashion. Time-out was performed. Fluoroscopic imaging was used throughout the case. A lateral purchase of the fibula was performed sharply. Fracture site was easily identified and cleaned of fracture hematoma. Bone quality was rather brittle. [id number] reduction clamp was used to reduce the fracture site which was a short oblique and I placed a lag screw from anterior to posterior which held nicely. I then selected a locking side plate with four holes proximal to the fracture site. The first screw was placed, nonlocking, and the remaining screws were placed in a locked fashion. This reduced the tib/fib clear space nicely and the ankle mortise and looked nice and stable. I then moved to the medial malleolus. A diagonal incision was made directly over the medial malleolus and blunt dissection was carried down to the fracture site. There was one main transverse fracture but several comminuted fragments distally which were very difficult to obtain a purchase in. I was able to place one fully threaded 4-0 cannulated screw over a guidepin which helped hold the main fragment in place. Smaller pieces were reduced and stabilized with soft tissue repair using #1 Vicryl. All the wounds were thoroughly irrigated before being closed in layers with 2-0 Vicryl followed by 3-0 nylon interrupted in the skin. Sterile dressings were placed followed by a well-molded and well-padded stirrup and posterior slab splint. The drapes were then removed and she was taken to the recovery room under the care of Anesthesia. DARON
[2017-02-03] MEDS: ESCITALOPRAM 20 MG PO SCH (16:38)
[2017-02-03] MEDS: FLUDROCORTISONE 0.1 MG PO SCH (16:39)
[2017-02-03] MEDS: RABEPRAZOLE 20 MG PO SCH (16:39)
--- NOTE | 2017-02-03 17:40 | NUR ---
CHEST PAIN PT PLACED CALL LIGHT AT THIS TIME TO REPORT "SEVERE CHEST PAIN" AT THIS TIME. PT RATING PAIN A 10/10 AND DESCRIBED CHEST PAIN SHARP AND HEAVINESS TO HER LEFT CHEST. PT STATED CHEST PAIN RADIATED UP INTO HER LEFT NECK. PT IMMEDIATELY AND INCREASINGLY BECAME SOA. BLOOD PRESSURE AND HR STABLE UPON INITIAL ASSESSMENT, HOWEVER O2 SATURATIONS IN THE 60'S. PT'S RESPIRATIONS 24-30 BREATHS PER MINUTE. NON-REBREATHER PLACED AT 15L TO INCREASE SATURATIONS TO 100%. PT REPORTED RELIEF FROM SOA AFTER O2 NEEDS INCREASED. THIS RN NOTIFIED RANGE EXAMINER IMMEDIATELY UPON REPORT OF SEVERE CHEST PAIN. SAMARA Fan RANGE EXAMINER PRESENT IN ROOM DURING THIS TIME. PTS ALSO PRESENT IN ROOM AT BEDSIDE DURING CHEST PAIN EPISODE. RAPID RESPONSE CALLED AT 1741. ADMINISTRATION OF NITRO STAT BEGAN AT 1742 AND REPEATED DOSE X3 Q5MIN APART. RAPID RESPONSE TEAM PRESENTED TO ROOM TO BEGIN ASSESSMENT AND INTERVENTION. SEE RAPID RESPONSE RECORD FOR FURTHER DETAILS.
--- NOTE | 2017-02-03 17:57 | NUR ---
Dr. Leodan Ac paged at [phone] and returned page at [phone]. Notified of patient condition (see Rapid Response/Status note); verbal order received to consult hospitalist. No new orders given at this time.
[2017-02-03] MEDS: MORPHINE SULFATE 4 MG SYRINGE IV PRN ×2 (18:04→18:06)
--- NOTE | 2017-02-03 18:15 | NUR ---
To CT Pt to STAT CT at this time via pt bed. Pt on 12 L Non-rebreather, on portable heart monitor. Pt states still having severe, active CP.
[2017-02-03] MEDS ORDERED: SALINE FLUSH 10ml SYRINGE ONE (18:18)
[2017-02-03] MEDS ORDERED: NORMAL SALINE 100 ML ONE (18:18)
[2017-02-03] MEDS ORDERED: IOHEXOL 350 MG/ML 75ml INJECTION ONE (18:18)
[2017-02-03 19:23] LABS: ALBUMIN 3.6 G/DL (3.5-5.0); ALBUMIN/GLOBULIN RATIO 1.5 RATIO (1.1-2.2); ALKALINE PHOSPHATASE 53 U/L (38-126); ALT (SGPT) 69 U/L (9-52); ANION GAP 9 MEQ/L (5-15); AST (SGOT) 66 U/L (14-36); BASOPHILS % (AUTO) 0.3 % (0-2); BUN/CREATININE RATIO 15 RATIO (6-26); CALCIUM 8.3 MG/DL (8.4-10.2); CHLORIDE 105 MEQ/L (98-107); CO2 - CARBON DIOXIDE 30 MEQ/L (22-30); CREATININE 0.6 MG/DL (0.7-1.2); EOSINOPHILS # (AUTO) 0.2 T/MM3 (0-0.5); EOSINOPHILS % (AUTO) 2.4 % (0-4); GLOMERULAR FILTRATION RATE 99; GLUCOSE 135 MG/DL (65-110); HCT - HEMATOCRIT 29.8 % (36-46); HGB - HEMOGLOBIN 9.6 GM/DL (12-16); IMMATURE GRANULOCYTE # (AUTO) 0.03 T/MM3 (0.00-0.03); IMMATURE GRANULOCYTE % (AUTO) 0.3 % (0.0-0.5); LYMPHOCYTES # (AUTO) 1.5 T/MM3 (1-4.8); LYMPHOCYTES % (AUTO) 14.5 % (23-45); MEAN CORPUSCULAR HGB 29.9 UUG (26-34); MEAN CORPUSCULAR HGB CONC(MCHC 32.2 GM/DL (31-37); MEAN CORPUSCULAR VOLUME 92.8 UM3 (80-100); MEAN PLATELET VOLUME 8.4 UM3 (9.4-12.4); MONOCYTES # (AUTO) 0.5 T/MM3 (0-0.8); MONOCYTES % (AUTO) 5.4 % (0-9.0); NEUTROPHILS #(AUTO)-ABSOLUTE 7.8 T/MM3 (1.8-7.7); NEUTROPHILS % (AUTO) 77.1 % (33-66); PROBNP 1440 PG/ML (0-175); RED BLOOD COUNT 3.21 M/MM3 (4.00-5.20); SODIUM 144 MEQ/L (134-144); WBC - WHITE BLOOD COUNT 10.1 T/MM3 (4.5-11.0)
[2017-02-03 19:28] LABS: INR 1.08 (0.76-1.04); PROTHROMBIN TIME 11.8 SEC (9.31-12.49); PTT 29.4 SEC (24-36)
--- NOTE | 2017-02-03 19:35 | NUR ---
Pain: 10/10 Dilaudid .5 mg IV is given as per prn order.
[2017-02-03] MEDS: LITHIUM CARBONATE 150 MG PO SCH (20:57)
[2017-02-03] MEDS ORDERED: SENNA + DOCUSATE TAB PO SCH (21:00)
[2017-02-03] MEDS ORDERED: ENOXAPARIN 150 MG/ML INJECTION IV SCH (21:00)
[2017-02-03] MEDS ORDERED: ENOXAPARIN 40 MG/0.4 ML INJECTION SQ SCH (21:00)
[2017-02-03] MEDS: QUETIAPINE 150 MG PO SCH (21:04)
--- NOTE | 2017-02-03 22:20 | CONSPD ---
Consultation Info Date DATE: 02/03/17 TIME: 21:59 Date of Consultation: February 03, 2017 Attending Physician: Mark Hernandez MD Reason for Consultation: low O2 saturation HPI - Adult Date DATE: 02/03/17 TIME: 21:59 General Chief Complaint: sudden hypoxia History of Present Illness Called to floor by rapid response due to patients declining condition. Patient found to have sudden decline in O2 saturation to 65% on room air. Patient developed sudden sternal chest pain radiating in the left side patient rated 10 out of 10 was notably pale and distressed. O2 sats ration improved 200% only by 15 L 5 non-rebreather. Chest pain not alleviated by sublingual nitroglycerin 3 rounds. Received call from Dr. 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 Last Edited By: Tammi Morgan on Nov 22, 2015 14:13 Surgical History Patient's Surgical History: C SPINE fusion L TKA ORIF right ankle Back Fusion Hyst Carotid Endar Current Medications Home Meds Reported Medications Levothyroxine Sodium (Levothyroxine Sodium) 100 Mcg Tablet, 100 MCG PO DAILY 01/28/17 Dicyclomine HCl (Dicyclomine HCl) 20 Mg Tablet, 20 MG PO QID 01/28/17 Acetaminophen (Acetaminophen) 500 Mg Tablet, 500 MG PO QID Y for PAIN 01/28/17 Ferrous Sulfate (Ferrous Sulfate) 324 Mg Tablet.dr 324 MG PO DAILY 01/28/17 Docusate Sodium (Docusate Sodium) 100 Mg Capsule, 100 MG PO DAILY Y for CONSTIPATION 01/28/17 Hydrocodone/Acetaminophen (Hydrocodon-Acetaminoph 7.5-325) 7.5-325 Tablet, 1-2 TAB PO Q4-6H Y for PAIN 01/28/17 [place] Carbonate ([place] Carbonate) 150 Mg Capsule, 150 MG PO WS 01/12/17 Cyclobenzaprine HCl (Cyclobenzaprine HCl) 10 Mg Tablet, 10 MG PO HS 09/24/16 Atorvastatin Calcium (Atorvastatin Calcium) 40 Mg Tablet, 40 MG PO HS 05/31/16 Aspirin/Dipyridamole (Aggrenox 25 mg-200 mg Capsule) 1 Cap Capsule, 1 CAP PO BID 05/31/16 Fludrocortisone Acetate (Fludrocortisone Acetate) 0.1 Mg Tablet, 0.1 MG PO DAILY 11/20/15 Quetiapine Fumarate (Seroquel Xr) 150 Mg Tablet, 150 MG PO HS 06/05/15 Metoprolol Tartrate (Metoprolol Tartrate) 25 Mg Tablet, 0.5 TAB PO BIDWM 05/27/15 Lorazepam (Ativan) 1 Mg Tablet, 1 MG PO TID Y for ANXIETY 06/23/14 Rabeprazole Sodium (Aciphex) 20 Mg Tablet.dr, 20 MG PO DAILY 06/23/14 Metformin Hcl (Glucophage) 850 Mg Tablet, 850 MG PO BID 08/29/13 Lamotrigine (Lamictal) 100 Mg Tablet, 100 MG PO BID 04/07/13 Escitalopram Oxalate (Lexapro) 20 Mg Tablet, 20 MG PO DAILY 04/02/13 Allergies: Coded Allergies: aripiprazole (Verified Allergy, Unknown, RASH, 01/29/17) trazodone (Verified Allergy, Unknown, RASH, 01/29/17) cephalexin (Verified Adverse Reaction, Unknown, NAUSEA, 01/29/17) ziprasidone (Verified Adverse Reaction, Unknown, N/V, 01/29/17) Family History Family History: Dementia Parkinson's dz Alzheimer's dz Social History Smoking Status: Never smoker Does patient use chewing tobac: No Second Hand Exposure: No Substance Use Type: does not use Alcohol Intake: none Sexuality: male partner Advance Directives: Yes DPOA for Healthcare Only (DPOA-DEEPA JOHNSON) Review of Systems Unable to Obtain ROS Due to: clinical condition Cardiovascular chest pain Pulmonary Respiratory: dyspnea, hyperventilation Physical Exam General General Nourishment: obese, adult Vital Signs Vital Signs Date Time Temp Pulse Resp B/P Pulse Ox O2 Delivery O2 Flow Rate FiO2 02/03/17 20:41 20 02/03/17 18:10 74 151/77 90 Non-Rebreather 10.00 02/03/17 13:09 98.5 Height (Feet): 5 Height (Inches): 6.00 Telemetry Rhythm: Sinus Rhythm, Sinus Tachycardia Eyes Brief: FOUND: EOMI, PERRL Neck Brief: NOT FOUND: JVD, nuchal rigidity Respiratory Brief: FOUND: clear all deng, equal bilaterally, symmetrical Cardiovascular (brief) Cardiac Brief: FOUND: regular rate, regular rhythm Abdomen (brief) Abdominal Brief: FOUND: soft, tender Integumentary (brief) Integumentary Brief: FOUND: warm Neurologic (brief) Neurological Brief: FOUND: cranial 2-12 intact, motor Neurologic RN Documented GCS Eye Opening: Verbal: Motor: Total: 15 Psychiatric (brief) FOUND: alert Comments Appearing medically distressed Psychiatric Attitude: FOUND: cooperative Laboratory Laboratory Tests Test 02/02/17 05:46 02/02/17 08:35 02/02/17 14:48 02/02/17 20:15 Glucometer 138mg/dL 152mg/dL 123mg/dL White Blood Count 5.5T/MM3 Red Blood Count 3.20M/MM3 Hemoglobin 9.5GM/DL Hematocrit 30.0% Mean Corpuscular Volume 93.8UM3 Mean Corpuscular Hemoglobin 29.7UUG Mean Corpuscular Hemoglobin Concent 31.7GM/DL RDW Standard Deviation 45.7FL Platelet Count 255T/MM3 Mean Platelet Volume 8.6UM3 Immature Granulocyte % (Auto) 0.2% Neutrophils (%) (Auto) 59.0% Lymphocytes (%) (Auto) 30.3% Monocytes (%) (Auto) 4.9% Eosinophils (%) (Auto) 4.9% Basophils (%) (Auto) 0.7% Absolute Immature Granulocyte (auto 0.01T/MM3 Absolute Neutrophils (auto) 3.3T/MM3 Absolute Lymphocytes (auto) 1.7T/MM3 Absolute Monocytes (auto) 0.3T/MM3 Absolute Eosinophils (auto) 0.3T/MM3 Absolute Basophils (auto) 0.0T/MM3 Turbidity < 20 Sodium Level 144MEQ/L Potassium Level 3.9MEQ/L Chloride Level 104MEQ/L Carbon Dioxide Level 30MEQ/L Anion Gap 10MEQ/L Blood Urea Nitrogen 10.0MG/DL Creatinine 0.6MG/DL Glomerular Filtration Rate Calc 99 BUN/Creatinine Ratio 17RATIO Glucose Level 120MG/DL Calculated Osmolality 277MOSM/KG Calcium Level 8.8MG/DL Icterus Index < 2 Chemistry Specimen Hemolysis 42 Test 02/03/17 00:00 02/03/17 05:16 02/03/17 12:24 02/03/17 13:31 Arterial Blood pH 7.350 Arterial Blood Partial Pressure CO2 58MMHG Arterial Blood pO2 at Patient Temp 33MMHG Arterial Blood HCO3 32MEQ/L Arterial Blood Total CO2 33.8MEQ/L Arterial Blood Oxygen Saturation 60.0% Arterial Blood Base Excess 4.9MMOL/L Oxygen Delivery Method (LAB) High flow marline can, % Blood Gas Oxygen Liter Flow 10 Blood Gas Oxygen Percent Given Blood Gas Vent Rate Blood Gas Tidal Volume ML Glucometer 115mg/dL 143mg/dL 139mg/dL Test 02/03/17 17:45 02/03/17 19:55 White Blood Count 10.1T/MM3 Red Blood Count 3.21M/MM3 Hemoglobin 9.6GM/DL Hematocrit 29.8% Mean Corpuscular Volume 92.8UM3 Mean Corpuscular Hemoglobin 29.9UUG Mean Corpuscular Hemoglobin Concent 32.2GM/DL RDW Standard Deviation 44.4FL Platelet Count 275T/MM3 Mean Platelet Volume 8.4UM3 Immature Granulocyte % (Auto) 0.3% Neutrophils (%) (Auto) 77.1% Lymphocytes (%) (Auto) 14.5% Monocytes (%) (Auto) 5.4% Eosinophils (%) (Auto) 2.4% Basophils (%) (Auto) 0.3% Absolute Immature Granulocyte (auto 0.03T/MM3 Absolute Neutrophils (auto) 7.8T/MM3 Absolute Lymphocytes (auto) 1.5T/MM3 Absolute Monocytes (auto) 0.5T/MM3 Absolute Eosinophils (auto) 0.2T/MM3 Absolute Basophils (auto) 0.0T/MM3 Prothromb Time International Ratio 1.08 Activated Partial Thromboplast Time 29.4SEC Turbidity < 20 Sodium Level 144MEQ/L Potassium Level 4.0MEQ/L Chloride Level 105MEQ/L Carbon Dioxide Level 30MEQ/L Anion Gap 9MEQ/L Blood Urea Nitrogen 9.0MG/DL Creatinine 0.6MG/DL Glomerular Filtration Rate Calc 99 BUN/Creatinine Ratio 15RATIO Glucose Level 135MG/DL Calculated Osmolality 278MOSM/KG Calcium Level 8.3MG/DL Total Bilirubin 0.60MG/DL Icterus Index < 2 Aspartate Amino Transf (AST/SGOT) 66U/L Alanine Aminotransferase (ALT/SGPT) 69U/L Alkaline Phosphatase 53U/L Troponin I < 0.012ng/ml DO-Yoi-U-Type Natriuretic Peptide 1440PG/ML Total Protein 6.0G/DL Albumin 3.6G/DL Globulin 2.4G/DL Albumin/Globulin Ratio 1.5RATIO Chemistry Specimen Hemolysis < 15 Glucometer 135mg/dL EKG By my interpretation, some diffusely flipped TV waves but ST depression is uncertain to be of any acute status. I'm attempting to get old EKGs at this time Radiology CT angiogram reveals no acute pulmonary embolus. I have reread this and cannot find alternative etiology for this acute condition change Impression/Recommendation Problems: (1) Acute respiratory failure with hypoxia Onset Date: 01/2017 Status: Acute Assessment & Plan: Patient is on 15 L by nasal cannula and has been moved to the intensive care unit. CT angiogram was performed and virtual radiology reading tonight shows no pulmonary embolus. Patient had already been started on 1 mg per kilogram of IV Lovenox Q 12 hours. She is now down to 3 L by simple mask. Showing fairly significant improvement. If this is not an embolism of fat or clot from the fractured extremity, then the next most likely explanation is some post anesthesia aspiration. However this does not explain the acute pain unless this for anxiety and simply psychogenic. (2) Chest pain at rest Onset Date: 01/2017 Status: Acute Assessment & Plan: Discussed the case with Dr. Brown and reviewed his previous coronary in 2014 which showed no significant and certainly no critical stenoses. My appreciation to him for his time in reviewing both CT angiogram and corroborating with echocardiogram in the ICU. Will continue to rule out cardiac involvement with serial troponin small repeat an EKG in the morning. Intake and Output 02/03/17 07:00 Intake Total 3186.0 ml Output Total 2050.0 ml Balance 1136.0 ml Intake Oral 2035.0 ml IV Total 1151.0 ml Output Urine Total 2050.0 ml # Voids 4 # Bowel Movements 1 Total critical care time thus far 80 minutes without procedures performed MARK HERNANDEZ MD February 03, 2017 22:03
[2017-02-04] VITALS (49 sets, daily range): BP systolic 110–202; BP diastolic 56–112; PULSE 60–81; RESP 13–45; TEMP 98.1–100.2; O2SAT 89–100
[2017-02-04] MEDS ORDERED: NOZIN NASAL SWAB NS SCH (01:00)
[2017-02-04] MEDS: NORMAL SALINE 1,000 ML IV SCH ×2 (02:25→16:39)
[2017-02-04] MEDS: CLINDAMYCIN 900mg IVPB 50 ML IV SCH (02:30)
[2017-02-04 04:49] LABS: BASOPHILS % (AUTO) 0.2 % (0-2); EOSINOPHILS # (AUTO) 0.1 T/MM3 (0-0.5); EOSINOPHILS % (AUTO) 1.3 % (0-4); HCT - HEMATOCRIT 27.3 % (36-46); HGB - HEMOGLOBIN 8.7 GM/DL (12-16); IMMATURE GRANULOCYTE # (AUTO) 0.03 T/MM3 (0.00-0.03); IMMATURE GRANULOCYTE % (AUTO) 0.3 % (0.0-0.5); LYMPHOCYTES # (AUTO) 1.1 T/MM3 (1-4.8); LYMPHOCYTES % (AUTO) 10.6 % (23-45); MEAN CORPUSCULAR HGB 29.9 UUG (26-34); MEAN CORPUSCULAR HGB CONC(MCHC 31.9 GM/DL (31-37); MEAN CORPUSCULAR VOLUME 93.8 UM3 (80-100); MEAN PLATELET VOLUME 8.7 UM3 (9.4-12.4); MONOCYTES # (AUTO) 0.6 T/MM3 (0-0.8); MONOCYTES % (AUTO) 5.6 % (0-9.0); NEUTROPHILS #(AUTO)-ABSOLUTE 8.2 T/MM3 (1.8-7.7); RED BLOOD COUNT 2.91 M/MM3 (4.00-5.20)
--- NOTE | 2017-02-04 04:53 | NUR ---
Pt is no longer complaining of chest pain. Has been getting norco for left ankle pain. Sats have been in the upper 90's. Pt is weaned down to 1L NC. O2 was off for a short time. Pt desats to 89%. Lungs continue to be CTA.
[2017-02-04 04:57] LABS: ANION GAP 6 MEQ/L (5-15); BUN/CREATININE RATIO 15 RATIO (6-26); CALCIUM 7.7 MG/DL (8.4-10.2); CHLORIDE 105 MEQ/L (98-107); CO2 - CARBON DIOXIDE 29 MEQ/L (22-30); CREATININE 0.6 MG/DL (0.7-1.2); GLOMERULAR FILTRATION RATE 99; GLUCOSE 142 MG/DL (65-110); POTASSIUM 3.6 MEQ/L (3.6-5); SODIUM 140 MEQ/L (134-144)
[2017-02-04] MEDS: LEVOTHYROXINE 100 MCG PO SCH (06:12)
--- NOTE | 2017-02-04 07:45 | PDORTHOPN ---
Subjective Date DATE: 02/04/17 TIME: 07:38 Jacqueline Topete is comfortable this morning but had a very eventful evening yesterday. Please see previous notes from Dr. Hernandez. CTA is negative for embolism. She denies chest pain for me at this time. Objective Vital Signs Vital signs Vital Signs 02/03/17 02/03/17 02/03/17 02/03/17 20:00 20:00 20:15 20:30 Pulse 61 69 72 68 Resp 20 19 64 29 B/P 152/73 150/68 Pulse Ox 100 100 100 02/03/17 02/03/17 02/03/17 02/03/17 20:31 20:41 20:45 21:00 Pulse 72 66 76 Resp 31 20 12 36 B/P 174/79 144/66 Pulse Ox 100 100 100 02/03/17 02/03/17 02/03/17 02/03/17 21:01 21:15 21:16 21:30 Pulse 75 69 70 68 Resp 62 24 22 26 B/P 159/117 155/70 155/71 Pulse Ox 100 100 100 100 02/03/17 02/03/17 02/03/17 02/03/17 21:45 22:00 22:15 22:30 Pulse 69 68 71 63 Resp 22 25 23 24 B/P 129/57 117/64 133/64 106/55 Pulse Ox 99 99 98 99 02/03/17 02/03/17 02/03/17 02/03/17 22:45 22:45 23:00 23:01 Pulse 70 60 60 Resp 20 42 21 25 B/P 92/53 117/59 Pulse Ox 96 100 100 02/03/17 02/03/17 02/04/17 02/04/17 23:15 23:30 00:00 00:00 Pulse 61 63 62 61 Resp 13 24 16 20 B/P 104/54 105/54 110/57 Pulse Ox 100 100 100 02/04/17 02/04/17 02/04/17 02/04/17 00:16 00:30 00:45 01:00 Pulse 60 60 60 61 Resp 16 23 20 21 B/P 125/64 129/63 132/69 127/65 Pulse Ox 100 100 100 100 02/04/17 02/04/17 02/04/17 02/04/17 01:15 01:30 02:00 02:01 Pulse 63 63 63 64 Resp 18 16 20 19 B/P 139/70 150/63 160/67 Pulse Ox 100 100 100 100 02/04/17 02/04/17 02/04/17 02/04/17 02:30 02:31 03:00 03:01 Pulse 65 65 66 66 Resp 18 21 21 24 B/P 142/63 133/63 Pulse Ox 100 100 100 100 02/04/17 02/04/17 02/04/17 02/04/17 03:30 04:00 04:00 04:30 Pulse 67 61 63 74 Resp 18 20 21 45 B/P 121/56 136/64 Pulse Ox 92 98 91 02/04/17 02/04/17 02/04/17 02/04/17 04:41 05:00 05:01 05:06 Pulse 74 66 67 75 Resp 31 18 25 17 B/P 181/83 184/90 161/81 Pulse Ox 97 99 93 98 02/04/17 05:30 Pulse 65 Resp 16 B/P 142/73 Pulse Ox 99 Height (Feet): 5 Height (Inches): 6.00 Weight (Kilograms): 87.800 General General Appearance: Alert, Well Nourished, Well Developed, No Acute Distress Respiratory (Brief) Respiratory Brief: FOUND: non-labored Cardiovascular (Brief) Comments Caprefill is prolonged but sensation is good. I removed the CHUY wrap and she had minimal bloody drainage laterally. Skin looked good. Integumentary (Brief) Integumentary Brief: FOUND dry, FOUND pink, FOUND warm Neurologic (Brief) Neurological Brief: FOUND: neuro intact Psychiatric (Brief) Psychiatric Brief: FOUND: alert, no acute distress Laboratory Laboratory Laboratory Tests 02/02/17 08:35 02/03/17 17:45 02/04/17 04:25 Laboratory Tests 02/02/17 08:35 02/03/17 17:45 02/04/17 04:25 Assessment & Plan Problems: (1) Closed fracture dislocation of left ankle Status: Acute Qualifiers: Encounter type: initial encounter Qualified Codes: S82.892A - Other fracture of left lower leg, initial encounter for closed fracture Assessment & Plan: 01/28/17 Closed reduction left ankle fx-dislocation in ER by Dr Ac 01/28. Admitted for observation, elevation, pain control and possible surgery 01/29 if swelling allows. 01/29/17M Swelling is too much for surgery today. Will discuss holding Aggrenox with Dr Brown. Schedule for surgery 02/03 and check her in the office 02/02 to confirm swelling is down. Arrange placement in facility due to her need for non-wt bearing and strict elevation. Pt will not be able to manage at home. Case Management consulted to assist. 01/29/17 PM Still awaiting word from Dr Brown's office on the ability to stop Aggrenox or if bridge therapy is required. Still awaiting final decision on acceptance of pt at [facility]. Pt had severe pain with mobility and required IV Dilaudid. Unknown how she will tolerate transport to the [facility] with IV pain medicine is not available at the [facility]. I have talked with Dr Ac and he has agreed to reevaluate the swelling in the morning (01/30) to see if surgery would be possible tomorrow. I will give her a dose of Lovenox this evening and address Aggrenox decision with Dr Brown's office in the AM. Continue to hold Aggrenox at this time. Defer on appropriateness of making pt an Inpatient vs outpatient to Case Mgmt. 01/30/[address] word [address] Brown's office on the ability to stop Aggrenox or if bridge therapy is required. Still awaiting final decision on acceptance of pt at [facility]. I anticipate she will be here through the weekend unless case management can come up with another acceptable option for her. I will change her pain medication to a scheduled basis in an effort to avoid IV medication I will continue her Lovenox until Thursday, when an order will be needed to discontinue for surgery NPO after midnight on Thu Continue to hold Aggrenox unless otherwise directed by cardiology. 02/01/17 Edema still present. Lovenox daily. Next dose tonight at 9pm. Planning ORIF left ankle 02/02/17. Nozin ordered along with pre op antibiotics. Blood sugars noted. Cont carb controlled diet. Check labs for surgery in AM. NPO fpr surgery tomorrow. 02/04/17 Medical management per Hospitalist. NWB to LLE Continue elevation of left ankle Hospital Course Summary Disclaimer The visit summary below is not to be considered part of the above Progress Note. ILAN AC MD February 04, 2017 07:42
[2017-02-04] MEDS ORDERED: FERROUS SULFATE 324 MG TABLET PO SCH (08:00)
--- NOTE | 2017-02-04 08:24 | DI ---
Indication: ITS.REASON: SOA, CP PROCEDURE: CTA PULMONARY EMBOLI: Encounter: Initial Comparison: May 28, 2012 Technique: Axial CT pulmonary angiographic phase images were performed through the chest after the administration of intravenous contrast. Coronal and Sagittal MIP reconstructed images were created and reviewed. Automated Exposure Control and Iterative Reconstruction dose reducing techniques were utilized. Contrast: Omnipaque 350 62 mL Findings: Pulmonary arteries: Exam is diagnostic to the subsegmental pulmonary arterial level. No filling defects identified to suggest a pulmonary embolus. Other findings: Groundglass opacities in the right lower lobe could be due to atelectasis. No pneumothorax or effusion. No lobar consolidative pneumonia. The central airways are patent. No axillary or mediastinal adenopathy. Heart size is normal. No pericardial effusion. The upper abdomen shows no acute findings. Impression: No pulmonary embolus. There is a preliminary report by virtual radiologic. .
[2017-02-04] MEDS: --POM--METOPROLOL TARTRATE 25mg TABLET PO SCH ×2 (08:41→16:42)
--- NOTE | 2017-02-04 08:44 | NUR ---
CM CM IN TO VISIT WITH PT. SHE IS ALERT AND ORIENTED. SHE WOULD LIKE TO BE SCREENED FOR [place] HERE [place] [facility] [place]. SHE IS REASSURED THAT CM WILL MAKE REFERRAL AND GET BACK WITH HER RE: IRU PLACEMENT. SHE IS GIVEN CM CONTACT INFORMATION.
--- NOTE | 2017-02-04 08:46 | NUR ---
CM UPDATED LACE SCORE IS 13. PT WILL BE CONSIDERED FOR ROTP PENDING DC DISPOSITION.
[2017-02-04] MEDS ORDERED: ONDANSETRON 4mg/2ml INJECTION IV PRN (09:00)
[2017-02-04] MEDS ORDERED: ENOXAPARIN 100 MG/ML INJECTION IV SCH (09:00)
--- NOTE | 2017-02-04 09:30 | NUR ---
STATUS AM cares provided. Patient c/o pain in left ankle. Patient ate 50% of breakfast and then became nauseated w/ emesis. Zofran given.
--- NOTE | 2017-02-04 10:30 | NUR ---
ACTIVITY PT/OT here and assisted patient to commode and then up in recliner.
--- NOTE | 2017-02-04 11:00 | NUR ---
COMFORT [place] given for left ankle discomfort. Patient able to eat some crackers and diet soda.
--- NOTE | 2017-02-04 12:30 | NUR ---
NUTRITION Appetite fair. No nausea. States she doesn't like the food.
[2017-02-04] MEDS: LAMOTRIGINE 100 MG PO SCH ×2 (12:31→22:27)
[2017-02-04] MEDS: FLUDROCORTISONE 0.1 MG PO SCH (12:32)
[2017-02-04] MEDS: ESCITALOPRAM 20 MG PO SCH (12:33)
--- NOTE | 2017-02-04 13:40 | NUR ---
TRANSFER Patient transferred to . 133 per orders. Patient oriented to room. at bedside.
--- NOTE | 2017-02-04 15:48 | NUR ---
CM PER CONVERSATION WITH GREG ON IRU PT HAS BEEN ACCEPTED AND HER INSURANCE HAS APPROVED. PT IS MADE AWARE. IT IS HER DESIRE TO DC TO IRU. SHE IS MADE AWARE THAT CM ANTICIPATES DC THURSDAY. DR. BARRIOS IS MADE AWARE OF PT ACCEPTANCE TO IRU.
[2017-02-04] MEDS: LITHIUM CARBONATE 150 MG PO SCH (16:42)
--- NOTE | 2017-02-04 18:03 | PNPDOC ---
Subjective Date DATE: 02/04/17 TIME: 17:55 Subjective Seen in ICU. Nursing notes no further problems overnight. Patient denies any chest pain, only postsurgical pain that seems proportionate Objective Vital Signs Vital signs Vital Signs Date Time Temp Pulse Resp B/P Pulse Ox O2 Delivery O2 Flow Rate FiO2 02/04/17 15:40 98.6 69 18 151/77 98 Room Air 02/04/17 07:45 1.00 Telemetry Rhythm: Sinus Rhythm, Sinus Tachycardia Height (Feet): 5 Height (Inches): 6.00 Weight (Kilograms): 90.900 General General Appearance: Alert, Orientated x 3 Eyes (Brief) Eyes: FOUND: EOMI, PERRL, NOT FOUND: scleral icterus Neck (Brief) Neck: NOT FOUND: JVD, nuchal rigidity Respiratory (Brief) Respiratory: FOUND: clear all deng, equal bilaterally Cardiovascular (Brief) Cardiac: FOUND: regular rate, regular rhythm Extremities (Brief) Extremity : Side: Left Extremity: foot Comments Toes are warm with moderate stable bruising. Surgical dressing is intact and clean Neurologic (Brief) Neurological: FOUND: cranial 2-12 intact, motor Psychiatric (Brief) Psychiatric: FOUND: alert, oriented, NOT FOUND: normal affect Laboratory Laboratory Laboratory Tests 02/03/17 17:45 02/04/17 04:25 Laboratory Tests 02/03/17 17:45 02/04/17 04:25 Assessment & Plan Problems: (1) Acute respiratory failure with hypoxia Onset Date: 01/2017 Status: Resolved Assessment & Plan: Patient has ruled out for pulmonary embolus and no cardiac involvement is seen. Prior catheterization by Dr. Brown shows no severe stenosis in 2014 and this is unlikely to radically changed. I can only assume that this hypoxia was secondary to some aspiration. Patient has a habit of crying pain to inappropriate conditions. Do not believe that the chest pain was relevant to the other clinical symptoms of breathlessness. I'm transferring her out of the ICU as she is medically stable (2) Chest pain at rest Onset Date: 01/2017 Status: Acute Assessment & Plan: Ruled out for acute coronary syndrome. Medical issues at this time should not keep her in hospital. Discharge is contingent upon her surgical status being adequate to discharge to outpatient care Code Status Full Code Hospital Course Summary Disclaimer The hospital course summary below is not to be considered part of the above Progress Note. Hospital Course Summary Patient has significant psychiatric history that can be managed on current medications. From a medical standpoint she can return home with appropriate DVT prophylaxis for her surgical condition MARK AARON MD February 04, 2017 18:00
[2017-02-04] MEDS: QUETIAPINE 150 MG PO SCH (19:43)
--- NOTE | 2017-02-04 19:49 | NUR ---
STATUS PT IS A&OX3. CALLS FOR NEEDS. SAT UP TO THE CHAIR FOR DINNER. USES THE BSC WITHOUT BEARING WEIGHT ON HER AFFECTED EXTREMITY WITH 2 ASSISTS AND GAIT BELT. NORCO GIVEN FOR PAIN CONTROL. ICE PACK TO ANKLE. DRESSING INTACT.
[2017-02-04] MEDS ORDERED: ENOXAPARIN 100 MG/ML INJECTION SQ SCH (21:00)
--- NOTE | 2017-02-05 00:30 | NUR ---
Sleeps. Left leg elevated. Ice to left ankle. NS infuses. Respirations even and unlabored.
[2017-02-05] MEDS: NORMAL SALINE 1,000 ML IV SCH ×2 (01:32→04:27)
[2017-02-05 03:25] VITALS: BP 152/75; PULSE 78; RESP 18; TEMP 98.1; O2SAT 96
[2017-02-05] MEDS: LEVOTHYROXINE 100 MCG PO SCH (05:44)
--- NOTE | 2017-02-05 07:29 | PDORTHOPN ---
Subjective Date DATE: 02/05/17 TIME: 07:25 Jacqueline Topete is comfortable this morning. She denies chest pain or shortness of breath. She states her pain is controlled. She was up to a chair with PT yesterday. She maintained the NWB restriction. She is anticipating D/C to IRU today. Ortho will await medical teams clearance before ordering discharge. Objective Vital Signs Vital signs Vital Signs 02/04/17 02/04/17 02/05/17 20:22 23:53 03:25 Temp 98.1 98.4 98.1 Pulse 76 78 78 Resp B/P 142/79 147/73 152/75 Pulse Ox 93 90 96 O2 Delivery Room Air Room Air Room Air Height (Feet): 5 Height (Inches): 6.00 Weight (Kilograms): 90.900 General General Appearance: Alert, Well Nourished, Well Developed, No Acute Distress Respiratory (Brief) Respiratory Brief: FOUND: non-labored Abdomen (Brief) Abdominal Brief: FOUND: non-tender Surgical Site Comments splint fitting well. fracture blisters noted over the great toe, dorsum, intact. Integumentary (Brief) Integumentary Brief: FOUND dry, FOUND pink, FOUND warm Neurologic (Brief) Neurological Brief: FOUND: neuro intact Psychiatric (Brief) Psychiatric Brief: FOUND: alert, no acute distress Laboratory Laboratory Laboratory Tests 02/03/17 17:45 02/04/17 04:25 Laboratory Tests 02/03/17 17:45 02/04/17 04:25 Assessment & Plan Problems: (1) Closed fracture dislocation of left ankle Status: Acute Qualifiers: Encounter type: initial encounter Qualified Codes: S82.892A - Other fracture of left lower leg, initial encounter for closed fracture Assessment & Plan: 01/28/17 Closed reduction left ankle fx-dislocation in ER by Dr Ac 01/28. Admitted for observation, elevation, pain control and possible surgery 01/29 if swelling allows. 01/29/17M Swelling is too much for surgery today. Will discuss holding Aggrenox with Dr Brown. Schedule for surgery 02/03 and check her in the office 02/02 to confirm swelling is down. Arrange placement in facility due to her need for non-wt bearing and strict elevation. Pt will not be able to manage at home. Case Management consulted to assist. 01/29/17 PM Still awaiting word from Dr Brown's office on the ability to stop Aggrenox or if bridge therapy is required. Still awaiting final decision on acceptance of pt at [facility]. Pt had severe pain with mobility and required IV Dilaudid. Unknown how she will tolerate transport to the [place] with IV pain medicine is not available at the [place]. I have talked with Dr Ac and he has agreed to reevaluate the swelling in the morning (01/30) to see if surgery would be possible tomorrow. I will give her a dose of Lovenox this evening and address Aggrenox decision with Dr Brown's office in the AM. Continue to hold Aggrenox at this time. Defer on appropriateness of making pt an Inpatient vs outpatient to Case Mgmt. 01/30/[address] word [address] Brown's office on the ability to stop Aggrenox or if bridge therapy is required. Still awaiting final decision on acceptance of pt at [facility]. I anticipate she will be here through the weekend unless case management can come up with another acceptable option for her. I will change her pain medication to a scheduled basis in an effort to avoid IV medication I will continue her Lovenox until Thursday, when an order will be needed to discontinue for surgery NPO after midnight on Thu Continue to hold Aggrenox unless otherwise directed by cardiology. 02/01/17 Edema still present. Lovenox daily. Next dose tonight at 9pm. Planning ORIF left ankle 02/02/17. Nozin ordered along with pre op antibiotics. Blood sugars noted. Cont carb controlled diet. Check labs for surgery in AM. NPO fpr surgery tomorrow. 02/04/17 Medical management per Hospitalist. NWB to LLE Continue elevation of left ankle 02/05/17 Doing well, anticipate D/C to IRU today. Hospital Course Summary Disclaimer The visit summary below is not to be considered part of the above Progress Note. Hospital Course Patient has significant psychiatric history that can be managed on current medications. From a medical standpoint she can return home with appropriate DVT prophylaxis for her surgical condition BRIANDA BROUSSARD February 05, 2017 07:28
[2017-02-05 08:09] VITALS: BP 169/78; PULSE 79; RESP 16; O2SAT 93
[2017-02-05 08:10] VITALS: PULSE 79; RESP 16
--- NOTE | 2017-02-05 08:23 | DSPDOC ---
General Date Date DATE: 02/05/17 TIME: 08:06 Attending Physician Cash Ac MD Admitting Physician Cash Ac MD Consulting Physician hSemar [place] Admitting Diagnosis left ankle fracture dislocation Discharge Diagnosis SAME Procedures ORIF left ankle 02/03/[address] Ac. Diagnosis same History of Present Illness HPI Elements Location: ankle (left) Pain: stabbing Onset: Sudden Duration: 1-6 hours Previous Injury: No Aggrevated by: all activity Associated Symptoms: numbness Fell at home (01/28/17) in her kitchen. She had immediate, severe pain and was unable to ambulate. Severe deformity noted. Pt seen in [facility] ER and dx with fx-dislocation of the left ankle. Dr Ac was notified and reduced the ankle in the ER with application of splint. Pt admitted for observation and possible surgery. Hospital Course 01/28/17 Closed reduction left ankle fx-dislocation in ER by Dr Ac 01/28. Admitted for observation, elevation, pain control and possible surgery 01/29 if swelling allows. 01/29/17M Swelling is too much for surgery today. Will discuss holding Aggrenox with Dr Brown. Schedule for surgery 02/03 and check her in the office 02/02 to confirm swelling is down. Arrange placement in facility due to her need for non-wt bearing and strict elevation. Pt will not be able to manage at home. Case Management consulted to assist. 01/29/17 PM Still awaiting word from Dr Brown's office on the ability to stop Aggrenox or if bridge therapy is required. Still awaiting final decision on acceptance of pt at [facility]. Pt had severe pain with mobility and required IV Dilaudid. Unknown how she will tolerate transport to the [place] with IV pain medicine is not available at the [place]. I have talked with Dr Ac and he has agreed to reevaluate the swelling in the morning (01/30) to see if surgery would be possible tomorrow. I will give her a dose of Lovenox this evening and address Aggrenox decision with Dr Brown's office in the AM. Continue to hold Aggrenox at this time. Defer on appropriateness of making pt an Inpatient vs outpatient to Case Mgmt. 01/30/[address] word from [address] Brown's office on the ability to stop Aggrenox or if bridge therapy is required. Still awaiting final decision on acceptance of pt at [facility]. I anticipate she will be here through the weekend unless case management can come up with another acceptable option for her. I will change her pain medication to a scheduled basis in an effort to avoid IV medication I will continue her Lovenox until Thursday, when an order will be needed to discontinue for surgery NPO after midnight on Thu Continue to hold Aggrenox unless otherwise directed by cardiology. 02/02/17 Edema still present. Lovenox daily. Next dose tonight at 9pm. Planning ORIF left ankle 02/03/17. Nozin ordered along with pre op antibiotics. Blood sugars noted. Cont carb controlled diet. Check labs for surgery in AM. . 02/03/17 Pt underwent ORIF of bimalleolar ankle fx. Surgery was uneventful. PO meds restarted and Aggrenox / Lovenox in place. In the evening, pt developed sudden onset of CP and hypoxia. Txfr to ICU. EKG / CTA / serial troponins all negative for acute process. Hypoxia possibly due to some aspiration and underlying psych disorder. 02/04/17 Hospitalist has found no acute process and recommended txfr back to the surgical floor. Labs stable. BGMs WNL. Hypoxia resolved. Pain is adequately controlled. Continue NWB to LLE and work with mobility. Continue elevation of left ankle 02/05/17 Doing well, anticipate D/C to IRU today. Pain controlled. Continue mobility with PT / OT. Remain non wt bearing. F/U 02/11/17 in ortho clinic for xrays. Problems: (1) Closed fracture dislocation of left ankle Status: Acute Assessment & Plan: 02/05/17 Doing well, anticipate D/C to IRU today. Continue mobility with PT / OT. Remain non wt bearing. F/U 02/11/17 in ortho clinic for xrays. Ongoing Care Required?: Yes Other Postoperative Events: Acute episode of CP / hypoxia 02/03/17. Work up negative for acute NM or PE. Laboratory Laboratory Tests Test 02/04/17 10:07 02/04/17 14:04 02/04/17 20:39 Glucometer 144mg/dL 119mg/dL 209mg/dL Home Meds Reported Medications Levothyroxine Sodium (Levothyroxine Sodium) 100 Mcg Tablet, 100 MCG PO DAILY 01/28/17 Dicyclomine HCl (Dicyclomine HCl) 20 Mg Tablet, 20 MG PO QID 01/28/17 Acetaminophen (Acetaminophen) 500 Mg Tablet, 500 MG PO QID Y for PAIN 01/28/17 Ferrous Sulfate (Ferrous Sulfate) 324 Mg Tablet.dr, 324 MG PO DAILY 01/28/17 Docusate Sodium (Docusate Sodium) 100 Mg Capsule, 100 MG PO DAILY Y for CONSTIPATION 01/28/17 Hydrocodone/Acetaminophen (Hydrocodon-Acetaminoph 7.5-325) 7.5-325 Tablet, 1-2 TAB PO Q4-6H Y for PAIN 01/28/17 [place] Carbonate ([place] Carbonate) 150 Mg Capsule, 150 MG PO WS 01/12/17 Cyclobenzaprine HCl (Cyclobenzaprine HCl) 10 Mg Tablet, 10 MG PO HS 09/24/16 Atorvastatin Calcium (Atorvastatin Calcium) 40 Mg Tablet, 40 MG PO HS 05/31/16 Aspirin/Dipyridamole (Aggrenox 25 mg-200 mg Capsule) 1 Cap Capsule, 1 CAP PO BID 05/31/16 Fludrocortisone Acetate (Fludrocortisone Acetate) 0.1 Mg Tablet, 0.1 MG PO DAILY 11/20/15 Quetiapine Fumarate (Seroquel Xr) 150 Mg Tablet, 150 MG PO HS 06/05/15 Metoprolol Tartrate (Metoprolol Tartrate) 25 Mg Tablet, 0.5 TAB PO BIDWM 05/27/15 Lorazepam (Ativan) 1 Mg Tablet, 1 MG PO TID Y for ANXIETY 06/23/14 Rabeprazole Sodium (Aciphex) 20 Mg Tablet.dr, 20 MG PO DAILY 06/23/14 Metformin Hcl (Glucophage) 850 Mg Tablet, 850 MG PO BID 08/29/13 Lamotrigine (Lamictal) 100 Mg Tablet, 100 MG PO BID 04/07/13 Escitalopram Oxalate (Lexapro) 20 Mg Tablet, 20 MG PO DAILY 04/02/13 Discharge Disposition Please refer to Case Management Notes for patient's disposition. Estimated Blood Loss 50.0 REYNA CHUNG February 05, 2017 08:14
--- NOTE | 2017-02-05 09:31 | NUR ---
CM CM IN TO VISIT PATIENT, SHE IS UP IN CHAIR. PATIENT IS PLANNING TO DISCHARGE TO IRU TODAY. THIS CM CONTACT INFORMATION PROVIDED.
[2017-02-05] MEDS: ESCITALOPRAM 20 MG PO SCH (09:35)
[2017-02-05] MEDS: LAMOTRIGINE 100 MG PO SCH (09:35)
[2017-02-05] MEDS: --POM--METOPROLOL TARTRATE 25mg TABLET PO SCH (09:35)
[2017-02-05] MEDS: FLUDROCORTISONE 0.1 MG PO SCH (09:36)
--- NOTE | 2017-02-05 10:30 | NUR ---
DISCHARGE NURSING NOTE PT DISCHARGED TO IRU VIA WHEELCHAIR AT THIS TIME. PACKET SENT WITH PT, ALL BELONGINGS PACK AND SENT. PT ALERT AND ORIENTED X3. VITAL SIGNS STABLE, ON RA. PT MIDLINE TO REMAIN IN PLACE AT THIS TIME. REPORT TO ARNOLDO JAIME. NO CONCERNS NOTED AT THIS TIME.
== END 2017-02-05 10:30 | DRG 492 ==
LOC: ED 20:17 → EDHOLD 22:27 → SRG 23:00 → OBSVTOIN 01-30 11:11 → CCU 02-03 18:39 → SRG 02-04 13:40
PROVIDERS: ADMIT Orthopaedic Surgery; ATTEND Orthopaedic Surgery
PROC: 0QSH04Z Reposition Left Tibia with Internal Fixation Device, Open Approach (ICD-10-PCS; 2017-02-03)
PROC: 0QSH04Z Reposition Left Tibia with Internal Fixation Device, Open Approach (ICD-10-PCS; 2017-02-03)
PROC: 0QSK04Z Reposition Left Fibula with Internal Fixation Device, Open Approach (ICD-10-PCS; principal; 2017-02-03 10:16)
DX: S82.852A Displaced trimalleolar fracture of left lower leg, initial encounter for closed fracture (principal); J96.01 Acute respiratory failure with hypoxia; R07.9 Chest pain, unspecified; E11.9 Type 2 diabetes mellitus without complications; I10 Essential (primary) hypertension; I25.10 Atherosclerotic heart disease of native coronary artery without angina pectoris; E78.00 Pure hypercholesterolemia, unspecified; E03.9 Hypothyroidism, unspecified; K21.9 Gastro-esophageal reflux disease without esophagitis; K58.9 Irritable bowel syndrome, unspecified; M19.91 Primary osteoarthritis, unspecified site; F25.9 Schizoaffective disorder, unspecified; I25.2 Old myocardial infarction; Z86.73 Personal history of transient ischemic attack (TIA), and cerebral infarction without residual deficits; Z98.1 Arthrodesis status; W01.0XXA Fall on same level from slipping, tripping and stumbling without subsequent striking against object, initial encounter; Y93.89 Activity, other specified; Y92.010 Kitchen of single-family (private) house as the place of occurrence of the external cause; Y99.8 Other external cause status
CPT/HCPCS: 36415; 36600; 80048; 80053; 82803; 82948; 83036; 83880; 84484; 85025; 85610; 85730; 93306; 99218

== ENCOUNTER 2017-02-05 10:26 | Inpatient (IN) ==
--- NOTE | 2017-02-19 16:52 | Right on Track Program ---
Right on Track Program Date of Discharge: 02/18/17 Home Medications: Home Medications Medication Instructions Recorded Confirmed Escitalopram Oxalate [Lexapro] 20 mg PO DAILY #0 04/02/13 02/18/17 Lamotrigine [Lamictal] 100 mg PO BID #0 04/07/13 02/18/17 Metformin HCl [Glucophage] 850 mg PO BID #0 08/29/13 02/18/17 LORazepam [Ativan] 1 mg PO TID PRN #0 06/23/14 02/18/17 Rabeprazole Sodium [Aciphex] 20 mg PO DAILY #0 06/23/14 02/18/17 Quetiapine Xr [SEROquel XR] 150 mg PO HS #0 06/05/15 02/18/17 Fludrocortisone [Florinef] 0.1 mg PO DAILY #0 11/20/15 02/18/17 Aspirin/Dipyridamole [Aggrenox] 1 cap PO BID #0 05/31/16 02/18/17 Atorvastatin Calcium 40 mg PO HS #0 05/31/16 02/18/17 Cyclobenzaprine HCl 10 mg PO HS #0 09/24/16 02/18/17 [employer] Carbonate 150 mg PO WS #0 01/12/17 02/18/17 Dicyclomine HCl 20 mg PO QID #0 01/28/17 02/18/17 Docusate Sodium 100 mg PO DAILY PRN #0 01/28/17 02/18/17 Ferrous Sulfate 324 mg PO DAILY #0 01/28/17 02/18/17 Levothyroxine Sodium 100 mcg PO ACB #0 01/28/17 02/18/17 Previous Rx's Medication Instructions Recorded Hydrocodone/Acetaminophen 1 - 2 tab PO Q4-6H PRN 30 Days 02/18/17 [Hydrocodon-Acetaminoph 7.5-325] Metoprolol Tartrate 25 mg PO BIDWM 30 Days 02/18/17 - Right on Track Program No standard instances Date: 02/19/17 Right on Track Program: 24 Hour Follow-Up Care Plan Received: Yes Follow Up: Follow Up Appointment Scheduled Education: Diagnosis Education Reviewed Referral: Social Work, Primary Care Physician, Home Health Comments: 24-HOUR FOLLOW UP PHONE CALL: I spoke to Yoselyn on 02/19/17, the day after discharge from IRU. She stated that things were going well at home. Home Health came to evaluate her this morning. She denied having any questions on her discharge instructions, care plan, or medications. She is getting around her house well. She denied any concerns. She has a f/u appointment already planned with Dr. Velarde. PROBLEM LIST/DX 1. S/P ORIF Left ankle fx on 02/03/[address] Ac - NWB 2. Postop anemia - stable 3. Hypernatremia - resolved 4. CAD - stable 5. DM2 - noninsulin 6. Schizophrenia 7. Anxiety & Depression Discussed With Patient and Caregiver: Yes Recommendations For Follow-up: PLAN 1. Home Health, PT/OT 2. F/U with Dr. Velarde as planned 3. [id number] visit planned for 02/25/17 at noon 4. Will continue to follow through phone contact.
--- NOTE | 2017-02-25 15:30 | Right on Track Program ---
Right on Track Program Date of Discharge: 02/18/17 Home Medications: Home Medications Medication Instructions Recorded Confirmed Escitalopram Oxalate [Lexapro] 20 mg PO DAILY #0 04/02/13 02/18/17 Lamotrigine [Lamictal] 100 mg PO BID #0 04/07/13 02/18/17 Metformin HCl [Glucophage] 850 mg PO BID #0 08/29/13 02/18/17 LORazepam [Ativan] 1 mg PO TID PRN #0 06/23/14 02/18/17 Rabeprazole Sodium [Aciphex] 20 mg PO DAILY #0 06/23/14 02/18/17 Quetiapine Xr [SEROquel XR] 150 mg PO HS #0 06/05/15 02/18/17 Fludrocortisone [Florinef] 0.1 mg PO DAILY #0 11/20/15 02/18/17 Aspirin/Dipyridamole [Aggrenox] 1 cap PO BID #0 05/31/16 02/18/17 Atorvastatin Calcium 40 mg PO HS #0 05/31/16 02/18/17 Cyclobenzaprine HCl 10 mg PO HS #0 09/24/16 02/18/17 [place] Carbonate 150 mg PO WS #0 01/12/17 02/18/17 Dicyclomine HCl 20 mg PO QID #0 01/28/17 02/18/17 Docusate Sodium 100 mg PO DAILY PRN #0 01/28/17 02/18/17 Ferrous Sulfate 324 mg PO DAILY #0 01/28/17 02/18/17 Levothyroxine Sodium 100 mcg PO ACB #0 01/28/17 02/18/17 Previous Rx's Medication Instructions Recorded Hydrocodone/Acetaminophen 1 - 2 tab PO Q4-6H PRN 30 Days 02/18/17 [Hydrocodon-Acetaminoph 7.5-325] Metoprolol Tartrate 25 mg PO BIDWM 30 Days 02/18/17 - Right on Track Program No standard instances Date: 02/25/17 Right on Track Program: 7-14 Day [id number] Discharge Summary Received: No Care Plan Received: Yes Follow Up: Follow Up Appointment Scheduled ([facility] - end of the month. She's already seen Dr. Velarde.) Education: Diagnosis Education Reviewed Community Par[facility] Fall Intervention: No Referral: Social Work, Primary Care Physician Comments: I visited Yoselyn at her house in [place] on 02/25/17. There was a wheelchair ramp leading up to the front door. This was installed after her back surgery, but is now being used again since she is nonweightbearing. She uses a wheelchair to get around the house. She feels like her recovery is going well and she doesnt have urgent concerns. She has questions about mobility and weight bearing status in the future, but plans on discussing this with Dr. Ac. She has an appointment with [facility] later this month. She saw Dr. Velarde this morning and reported a good checkup. She also sees a therapist and a psychiatrist (Dr. Gauthier) in [place], and she feels like her psychiatric diagnoses are stable. Resources: She has Home Health. Her , Lalito, is her primary caregiver. She also has a friend who stays with her almost every day while Lalito is at work (though was taking today off). She attends [employer] but doesnt have additional support from there. 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 She has a life alert. Barriers: She does not drive, and relies on her for meals. When hes gone, she prepares a simple meal (ie cold sandwich). Quality of life: She rates as good. She expects it to improve once her leg has healed. Medication reconciliation: Meds were reviewed and she has a fairly good understanding of indications. She organizes her medications into a pill organizer herself. Current meds include: hydrocodone, lithium, Seroquel, iron, escitalopram, lamitrigine, atorvastatin, levothyroxine, cyclobenzaprine, lorazepam, ASA/dipyridamole, fludrocortisone, rabeprazole, dicyclomine, metformin. Based on hospital records, of the 17 listed medications, 9 were included on the Beers criteria. Self-monitoring: other than filling her pill box, she checks her blood sugars before meals. She typically runs around 110. Advanced directives: She has a living will and DPOA. A copy of TPOPP is in Ahead. Health literacy: she scored 15/15. PHQ 2: negative. She sees a psychiatrist and a therapist in [place] on a routine basis. Nutritional assessment: She scored 11/14 on the Mini Nutritional Assessment, indicating at risk for malnutrition based on recent stressor and immobility. Fall Screen: She scored 6 on the MAHC 10, which is at risk for falling. I offered the [facility] home evaluation for safety, and she declined. On brief environmental observation, she had clear floor spaces, no clutter, adequate lighting, and no rugs or cords that might cause falls. IDLs: She needs her husbands help with bathing but is independent in other ADLs. IADLs: She is limited due to non-weightbearing status but prior to her injury she was able to take care of most IADLs independently. Patient engagement: She is highly engaged in her healthcare and treatment options (38/40). SLUMS: She scored 16/30, which is in the dementia range. Its possible that she is still experiencing some deficits postop and posthospitalization. Would recommend f/u in the future, possibly additional cognitive testing. Exam: A&O x3, pleasant & cooperative Lungs: CTA Heart: RRR Abdomen: nondistended, benign Ext: Cast on LLE, moves toes easily, good cap refill Recommendations For Follow-up: Plan: Continue HH F/U with psych or Dr. Velarde in the future for additional cognitive testing, if ongoing concern Continue to follow through [facility]
== END 2017-02-18 16:02 | disposition home health service (06) | DRG 560 ==
PROVIDERS: ADMIT Family Medicine; ATTEND Family Medicine